=== PATIENT | male | born 1990 ===

== ENCOUNTER 2020-06-25 08:59 | Emergency (ER) | payer OTHER, SELFPAY ==
[2020-06-25 09:09] VITALS: BP 139/63; PULSE 67; RESP 16; TEMP 36.5; O2SAT 98; BMI 37.0
--- NOTE | 2020-06-25 09:21 | XR_ITS ---
EXAMINATION: XR LUMBOSACRAL SPINE CLINICAL INFORMATION: Left-sided pain COMPARISON: None TECHNIQUE: Three views of the lumbosacral spine. FINDINGS: There is straightening of lumbar lordosis. Abnormal segmentation of the lumbosacral spine seen with rudimentary disc at the S1-S2 disc level minimal loss of L5-S1 discitis seen with mild posterior spondylosis. Rest the disc heights, vertebral heights and alignment is normal. No acute fracture, dislocation or lytic process seen. The SI joints are symmetrical. XR/XR lumbar spine 2-3V IMPRESSION: Mild loss of L5-S1 disc height is noted with posterior spondylosis. No visible acute fracture, dislocation or subluxation.
[2020-06-25] MEDS: Cyclobenzaprine HCl 10 MG TABLET PO (09:32)
[2020-06-25] MEDS: Ketorolac Tromethamine 60 MG/2 ML VIAL IM (09:33)
--- NOTE | 2020-06-25 10:07 | ED_ITS ---
HPI - Back Pain/Injury General Chief Complaint: Back Pain/Injury Stated Complaint: back pain Time Seen by Provider: 06/25/20 09:21 Source: patient Mode of arrival: ambulatory Limitations: no limitations History of Present Illness HPI Narrative: State was sitting down on the ground with a friend turned to get up and felt a pulling sensation in the lower back and has had back pain since. States back pain essentially resolved when he is in certain positions and at rest but worsens with him moving and twisting or turning. There is no GI symptoms. MD elicited complaint: back pain Pertinent past history: prior back pain Onset (ago): day(s) (2 days ) Timing: intermittent Severity: moderate Similar Symptoms Previously: Yes Quality: aching Location: lumbar spine Radiation: none Exacerbating factors: none Relieving factors: none Context: turning/twisting Associated symptoms: denies other symptoms Work related injury: No Related Data Previous Rx's Medication Instructions Recorded metformin 1,000 mg tablet 1,000 mg PO BID 30 Days #60 tab 06/06/20 lisinopril 20 mg tablet 20 mg PO DAILY 90 Days #90 tab 06/15/20 cyclobenzaprine 10 mg PO TID PRN #20 tab 06/25/20 ibuprofen 800 mg PO Q8H PRN #30 tab 06/25/20 Allergies Allergy/AdvReac Type Severity Reaction Status Date / Time penicillin V Allergy Unknown hives Unverified 11/08/19 00:00 Penicillins [PENICILLINS] Allergy Unknown ITCHY Unverified 05/15/20 17:46 Review of Systems Review of Systems: Constitutional: No Weight loss, No Fever, No Chills, No Night Sweats, No Fatigue, No Malaise ENT/Mouth: No Hearing loss, No Ear Pain, No Nasal Congestion, No Sinus Pain, No Hoarseness, No sore throat, No Rhinorrhea, No Swallowing Difficulty Eyes: No Eye Pain, No Swelling, No Redness, No Foreign Body, No Discharge, No Vision Changes Cardiovascular: No Chest Pain, No SOB, No Dyspnea on Exertion, No Orthopnea, No Edema, No Palpitations Respiratory: No Cough, No Sputum, No Wheezing, No Smoke Exposure, No Dyspnea Gastrointestinal: No Nausea, No Vomiting, No Diarrhea, No Constipation, No abdominal Pain, No Hematochezia, No Melena Genitourinary: no irregular bleeding, No Dysuria, No Urinary Frequency, No Hematuria, No Urinary Incontinence, No Urgency, No Flank Pain, No Urinary Flow Changes, No Hesitancy Musculoskeletal: No joint pain, No Myalgias, No Joint Swelling NOTED IN HPI Skin: No Skin Lesions, No rash Neuro: No Weakness, No Numbness, No Paresthesias, No Loss of Consciousness, No Dizziness, No Headache Psych: No Social Issues Heme/Lymph: No Bruising, No Bleeding,No Lymphadenopathy Endocrine: No Polyuria, No Polydipsia, No Temperature Intolerance Yes all other systems are reviewed and are negative [facility] Past Medical History Attestation statement: The following information was validated with the patient. Medical History (Updated 06/25/20 @ 10:09 by Alvino Hartley NP) Diabetes mellitus Essential hypertension Social History Social History Alcohol intake: never Smoking Status: Never smoker Use of substances other than those prescribed or required for medical reasons: Yes Substance Use Type: Marijuana Substance Use Frequency: Weekly Last Used Substance: Days (ago) Any prior treatment program specific to substance use: No Advance Directives: No Advance Directives Information Provided: No Physical Exam Vital Signs: Vital Signs: Vital Signs Temp Pulse Resp BP Pulse Ox 06/25/20 09:09 97.7 F 67 16 139/63 98 Body Mass Index 37.0 Reviewed Const: General: cooperative and healthy appearing; No acute distress or intoxicated appearing Nutritional Appearance: average body habitus Orientation/consciousness: patient oriented x3 HENMT: Head: Yes normal to inspection Ears: hearing grossly normal bilaterally Eyes: General: appearance normal, both eyes and all related structures Visual Martinez: normal visual martinez by confrontation Neck: Neck: Yes normal visual inspection and No tender Thyroid: Thyroid normal Chest: Chest palpation & inspection: normal inspection of the chest Resp: Effort & Inspection: normal respiratory effort Cardio: Jugular venous distension: no JVD GI: Inspection: Yes normal to inspection Percussion: Yes normal to percussion Auscultation: normal bowel sounds : General: Yes no CVA tenderness Back/Spine/Pelvis: Other: Negative leg lift No midline to palpation. Back: no CVA tenderness Skin: General skin exam: no rashes or lesions noted Neuro: General: patient oriented x3 Extrem: General: Yes normal to inspection MDM - Back Pain/Injury MDM Narrative Medical decision making narrative: Strain type injury to the lumbar paraspinal muscle. No low back pain red flags. Feels better after Toradol/Flexeril out of bed ambulatory status with gait. No sinus symptoms saddle anesthesia/cord compression. Will be discharged home accordingly with clear precaution return follow-up instructions. Stable for discharge. Differential Diagnosis Differential diagnosis: Likely lumbar radiculopathy, sciatica and strain of lumbar region; Unlikely renal colic, pyelonephritis, thoracic back pain, AAA and discitis Imaging Data Lumbar spine x-ray: Radiologist's impression: [address] [address] XRay Report Signed Patient: Cirilo Avendaño [facility]#: [id number] : 1990Acct:[id number] Age/Sex: 29 / MADM Date: 06/25/20 Loc: HO.ED Attending Dr: Ordering Physician: Alvino Hartley NP Date of Service: 06/25/20 Procedure(s): XR lumbar spine 2-3V Accession Number(s): [id number] cc: Alvino Hartley FOOD SERVICE WORKER~ EXAMINATION: XR LUMBOSACRAL SPINE CLINICAL INFORMATION: Left-sided pain COMPARISON: None TECHNIQUE: Three views of the lumbosacral spine. FINDINGS: There is straightening of lumbar lordosis. Abnormal segmentation of the lumbosacral spine seen with rudimentary disc at the S1-S2 disc level minimal loss of L5-S1 discitis seen with mild posterior spondylosis. Rest the disc heights, vertebral heights and alignment is normal. No acute fracture, dislocation or lytic process seen. The SI joints are symmetrical. XR/XR lumbar spine 2-3V IMPRESSION: Mild loss of L5-S1 disc height is noted with posterior spondylosis. No visible acute fracture, dislocation or subluxation. Dictated By:MONAE TAY MD Signed By:<Electronically signed by MONAE TAY MD in OV>06/25/20949 DD/ 0 TD/TT: Overhead Crane Inspector: KARYN Discharge Plan Discharge Clinical Impression: Strain of lumbar region Patient Disposition: Home, Self-Care Instructions: Low Back Strain (ED), Lower Back Exercises (ED) Additional Instructions: You have strained the muscle in her lower back The x-ray did not show any acute (new) findings. Warm compresses Gentle stretching Take medication prescribed Return if any concerns or worsening symptoms otherwise follow up with her primary care doctor Thank you Prescriptions: New cyclobenzaprine 10 mg tablet 10 mg PO TID PRN (Reason: muscle spasm) Qty: 20 RF: 0 ibuprofen 800 mg tablet 800 mg PO Q8H PRN (Reason: pain) Qty: 30 RF: 0 No Action metformin 1,000 mg tablet 1,000 mg PO BID 30 Days Qty: 60 RF: 6 lisinopril 20 mg tablet 20 mg PO DAILY 90 Days Qty: 90 RF: 3 Referrals: Latanya Lopez MD [Primary Care Provider] - 1 week
== END 2020-06-25 10:32 | disposition home or self-care (01) ==
PROVIDERS: Emergency Provider Emergency Medicine; PCP Internal Medicine
DX: S39.012A Strain of muscle, fascia and tendon of lower back, initial encounter (principal); X50.1XXA Overexertion from prolonged static or awkward postures, initial encounter; Y93.9 Activity, unspecified; Y92.9 Unspecified place or not applicable; Y99.9 Unspecified external cause status; Z79.899 Other long term (current) drug therapy
CPT/HCPCS: 72100; 96372; 99283; 99284; J1885

== ENCOUNTER 2021-11-24 08:56 | Outpatient (REF) | payer OTHER, SELFPAY ==
[2021-11-24 11:06] LABS: Creatinine Urine 196.13 mg/dL; Microalbum/Creatinine Ratio Ur 4.5 ug/mg cr
[2021-11-24 14:03] LABS: Alanine Aminotransferase 44 U/L (0-40); Albumin Level 4.9 g/dL (3.5-5.0); Alkaline Phosphatase 62 U/L (39-117); Anion Gap 12 (12-20); Aspartate Amino Transferase 32 U/L (5-37); Bilirubin Total 0.7 mg/dL (0.0-1.0); Blood Urea Nitrogen 15 mg/dL (9-16); Carbon Dioxide 29 mmol/L (22-29); Chloride 102 mmol/L (96-108); Cholesterol 127 mg/dL; Estimated Glomerular Filt Rate > 60; Glucose Fasting 129 mg/dL (60-99); HDL Cholesterol 30 mg/dL; LDL Cholesterol Calculated 76 mg/dl; Potassium 4.7 mmol/L (3.3-5.1); Sodium 138 mmol/L (135-145); Triglycerides 108 mg/dL
[2021-11-24 14:23] LABS: Vitamin D 25-OH Total 24.9 ng/mL (>30)
== END 2021-11-24 08:57 | disposition home or self-care (01) ==
LOC: HO.LAB 08:56
PROVIDERS: PCP Internal Medicine; Visit Provider Internal Medicine
DX: E11.9 Type 2 diabetes mellitus without complications (principal); E78.5 Hyperlipidemia, unspecified; E55.9 Vitamin D deficiency, unspecified; R10.11 Right upper quadrant pain
CPT/HCPCS: 36415; 80053; 80061; 82043; 82306

== ENCOUNTER → 2022-06-29 11:19 | Outpatient (BNVA) | payer OTHER, SELFPAY | PROVIDERS: PCP Internal Medicine; Referring Provider Internal Medicine; Visit Provider Nurse Practitioner Family | DX: R10.11 Right upper quadrant pain (principal); K59.01 Slow transit constipation | CPT/HCPCS: 99202 ==

== ENCOUNTER 2022-07-10 10:23 | Outpatient (REF) | payer OTHER, SELFPAY ==
[2022-07-10 11:33] LABS: Alanine Aminotransferase 39 U/L (0-40); Albumin Level 4.2 g/dL (3.5-5.0); Alkaline Phosphatase 58 U/L (39-117); Aspartate Amino Transferase 27 U/L (5-37); Bilirubin Direct 0.2 mg/dL (0.0-0.5); Bilirubin Total 0.4 mg/dL (0.0-1.0); Lipase 20 U/L (8-78); Total Protein 6.9 g/dL (6.5-8.0)
[2022-07-10 11:54] LABS: TSH reflex Free T4 0.43 uIU/mL (0.32-4.0)
== END 2022-07-10 10:24 | disposition home or self-care (01) ==
LOC: HO.LAB 10:23
PROVIDERS: PCP Internal Medicine; Visit Provider Nurse Practitioner Family
DX: R10.9 Unspecified abdominal pain (principal); K59.00 Constipation, unspecified
CPT/HCPCS: 36415; 80076; 83690; 84443

== ENCOUNTER 2022-08-04 08:10 | Outpatient (REF) | payer OTHER, SELFPAY ==
--- NOTE | ~2022-08-04 | US_ITS ---
EXAMINATION: US ABDOMEN COMPLETE CLINICAL INFORMATION: Unspecified abdominal pain. COMPARISON: Limited abdominal ultrasound 03/20/2020. Ultrasound abdomen 01/11/2019. TECHNIQUE: Real-time imaging of the abdominal viscera. FINDINGS: PANCREAS: Normal. ABDOMINAL AORTA: The proximal, mid, and distal segments are normal in caliber. INFERIOR VENA CAVA: Visualized portions are normal. LIVER: The liver is enlarged measuring 18.6 cm in length. The liver contour is normal. There is increased liver echogenicity with areas of focal fatty sparing adjacent to the gallbladder. No focal hepatic lesion. There is no intrahepatic biliary duct dilatation seen. GALLBLADDER: Normal. The gallbladder is physiologically distended without evidence of stones, sludge, polyps, wall thickening or pericholecystic fluid. COMMON BILE DUCT: Normal in caliber measuring 0.4 cm in diameter. RIGHT KIDNEY: Normal. No hydronephrosis. No renal calculi or focal parenchymal lesions. The kidney measures 9.7 cm in maximum dimension. LEFT KIDNEY: Normal. No hydronephrosis. No renal calculi or focal parenchymal lesions. The kidney measures 12.6 cm in maximum dimension. SPLEEN: Normal. The spleen measures 11.6 cm in maximum dimension. FREE FLUID: None. US/US abdomen complete IMPRESSION: 1. Diffuse hepatic steatosis with areas of focal fatty sparing adjacent to gallbladder. 2. The rest of the abdominal ultrasound is unremarkable.
== END 2022-08-04 08:11 | disposition home or self-care (01) ==
LOC: HO.US 08:10
PROVIDERS: Visit Provider Internal Medicine
DX: R10.9 Unspecified abdominal pain (principal)
CPT/HCPCS: 76700

== ENCOUNTER → 2022-10-01 15:05 | Outpatient (BNVA) | payer OTHER, SELFPAY | PROVIDERS: PCP Internal Medicine; Visit Provider Nurse Practitioner Family | DX: R10.11 Right upper quadrant pain (principal); K59.00 Constipation, unspecified | CPT/HCPCS: 99212 ==

== ENCOUNTER → 2022-11-01 08:48 | Outpatient (REF) | payer OTHER, SELFPAY ==
--- NOTE | ~2022-11-01 | NM_ITS ---
PROCEDURE: NUCLEAR MEDICINE HEPATOBILIARY SCAN WITHOUT PHARMACEUTICAL CLINICAL INFORMATION: Right upper quadrant pain. COMPARISON: None TECHNIQUE: Following intravenous administration of 5 mCi of 99M technetium mebrofenin, imaging over the right upper quadrant was obtained up to 120 minutes. FINDINGS: There is normal hepatic uptake with no focal defect. There is prompt visualization of common bile duct by 17-18 minutes. Cystic duct is not visualized up to 2 hours. No CCK was administered due to delayed visualization of gallbladder and most of isotope within the small bowel. NM/NM hepatobiliary wo pharm IMPRESSION: Normal hepatic uptake. Patent CBD. Delayed but patent cystic duct.
== END ==
LOC: HO.NUCMED 08:48
PROVIDERS: Visit Provider Nurse Practitioner Family
DX: R10.11 Right upper quadrant pain (principal)
CPT/HCPCS: 78226; A9537

== ENCOUNTER → 2022-11-12 15:05 | Outpatient (BNVA) | payer OTHER, SELFPAY | PROVIDERS: PCP Internal Medicine; Referring Provider Internal Medicine; Visit Provider Nurse Practitioner Family | DX: K59.04 Chronic idiopathic constipation (principal); R10.11 Right upper quadrant pain | CPT/HCPCS: 99212 ==

== ENCOUNTER 2022-12-20 13:53 | Outpatient (AMB) | payer OTHER, SELFPAY ==
--- NOTE | 2022-12-20 14:02 | A.OFFPC_ITS ---
Vital Signs 12/20/22 14:07 Height 5 ft 11 in Weight 260 lb BMI 36.2 BP 130/70 Blood Pressure Location Lt brachial Position Sitting Intake Visit Reasons: DM Intake Note: Patient here for a follow up DM Commutator Operator Required: No Accompanied by: Self / Same As Patient Allergies Penicillins [PENICILLINS] Allergy (Intermediate, Verified 12/20/22 14:15) Hives Medication List - Last Reconciled 12/20/22 by Latanya Gonzales MD blood pressure test kit-large ([facility]ocate Blood Pressure Monitor kit) As directed blood sugar diagnostic (FreeStyle Test strips) Use 1 test strip once a day blood-glucose meter (FreeStyle [place] Lite kit) As directed cyclobenzaprine 10 mg PO TID PRN docusate sodium 100 mg PO BEDTIME PRN 90 days ergocalciferol (vitamin D2) (Vitamin D2) 1,250 mcg PO QWEEK 90 days fenofibrate 54 mg PO DAILY 90 days ibuprofen 800 mg PO Q8H PRN lancets (FreeStyle Lancets) Use 1 lancet once a day as needed linaclotide (Linzess) 145 mcg PO DAILY lisinopril 20 mg PO DAILY 90 days loratadine 10 mg PO DAILY metformin 1,000 mg PO BID 30 days polyethylene glycol 3350 (Miralax) 17 grams PO DAILY semaglutide (Ozempic) 0.25 mg (0.4 mL) subcut QWEEK 90 days sennosides (Natural Senna Laxative) 8.6 mg PO BEDTIME Tobacco use date assessed: 12/20/22 HPI HPI Comments History of Present Illness Details This is a 32-year-old male with diabetes mellitus type 2, hypertension, hypertriglyceridemia and chronic idiopathic constipation that comes today for follow-up on his conditions. A1c slightly elevated and I will increase Ozempic. Blood pressure stable. Lipid panel will be order. Constipation well controlled with medications. No chest pain or shortness of breath. [facility] Medical History (Updated 12/20/22 @ 15:03 by Latanya Gonzales MD) Abdominal pain, RUQ (right upper quadrant) Allergic rhinitis Diabetes mellitus Essential hypertension Hemorrhoids Hypertriglyceridemia Hypovitaminosis D Lumbar spondylosis Neuropathy Obese Surgical History No pertinent past surgical history Family History Father Diabetes Hypertension Mother Diabetes Hypertension Stroke Maternal Grandmother Cancer Family/Other FH: mental illness Substance use disorder Maternal Aunt Diabetes Hypertension Paternal Aunt Diabetes Hypertension Social History Housing: Apartment Alcohol intake: former Patient Tobacco Use Status: Former Tobacco user Tobacco use type: Cigarette e-Cigarette/Vaping Use: Never Used Second Hand Smoke Exposure: No Substance Use Type: Marijuana service: No Current occupational status: employed Current occupational exposures/hazards: No Cognitive needs: No Hearing needs: No Vision needs: Yes Questionnaire PHQ-9 Over the last 2 weeks, how often have you been bothered by any of the following problems? 1. Little interest or pleasure in doing things: not at all 2. Feeling down, depressed, or hopeless: not at all 3. Trouble falling or staying asleep, or sleeping too much: not at all 4. Feeling tired or having little energy: not at all 5. Poor appetite or overeating: not at all 6. Feeling bad about yourself - or that you are a failure or have let yourself or your family down: not at all 7. Trouble concentrating on things, such as reading the newspaper or watching television: not at all 8. Moving or speaking so slowly that other people could have noticed. Or the opposite - being so fidgety or restless that you have been moving around a lot more than usual: not at all 9. Thoughts that you would be better off or of hurting yourself in some way: not at all Total score: 0 Depression Screening Interpretation: Negative 01053 - PHQ-9 Billing: Yes Source: Developed by Drs. Julio Williamson, Erendira Fermin, Ganga Crow and colleagues, with an educational lv from [employer]. Thrive Questionnaire Declines Thrive assessment: No Date Thrive assessed: 12/20/22 I am a: Patient What is your living situation today?: I have a steady place to live Within the past 12 months, did the food you bought not last and you didn't have the money to get more?: Never true Within the past 12 months, did you worry whether your food would run out before you got money to buy more?: Never true Do you have trouble paying for medicines?: No Do you have trouble getting transportation to medical appointments?: No Do you have trouble paying your heating and electricity bill?: No Do you have trouble taking care of your child, family member or friend?: No Do you have trouble with day-to-day activities such as bathing, preparing meals, shopping, managing finances, etc.?: No Are you currently unemployed and looking for a job?: No Are you interested in more education?: No Currently or been in a relationship where the following occur: no concerns reported AUDIT C Alcohol Use Questionnaire (AUDIT-C) 1. How often do you have a drink containing alcohol?: Monthly or less 2. How many drinks containing alcohol do you have on a typical day when you are drinking?: 1 or 2 3. How often do you have six or more drinks on one occasion?: Never Total Score: 1 ANAI-7 AMB Questionnaire ANAI-7 Date ANAI - 7 assessed: 12/20/22 Feeling nervous, anxious, or on edge: 0 = Not at all Not being able to stop or control worryin = Not at all Worrying too much about different things: 0 = Not at all Trouble relaxin = Not at all Being so restless that it is hard to sit still: 0 = Not at all Becoming easily annoyed or irritable: 0 = Not at all Feeling afraid as if something awful might happen: 0 = Not at all Total ANAI-7 score (0-4 normal; 5-9 mild; 10-14 moderate; 15-21 severe): 0 Source: Developed by Drs. Julio Williamson, Erendira Fermin, Ganga Crow and colleagues, with an educational lv from [employer]. ANAI-7 Assessment Billing ANAI-7 Assessment Tool: ANAI-7 Assessment 69604 Review of Systems Const All systems reviewed & are unremarkable except as noted in HPI and below Eyes Reports no additional complaints, Denies change in vision and Denies other visual disturbances Card Denies chest pain at rest, Denies chest pain with activity, Denies edema, Denies irregular heart rhythm, Denies claudication, Denies dyspnea, Denies dyspnea on exertion, Denies orthopnea, Denies paroxysmal nocturnal dyspnea and Denies slow heart rate Resp Denies cough, Denies dyspnea and Denies dyspnea on exertion GI Denies abdominal pain, Denies change in bowel habits, Denies excessive flatus, Denies nausea and Denies vomiting Denies urinary hesitancy, Denies urinary incontinence and Denies urinary urgency Musc Denies abnormal gait, Denies atrophy, Denies deformity and Denies limited range of motion Skin/Breast Denies bleeding lesions, Denies changing lesions and Denies rash Neuro Denies abnormal gait and Denies lack of coordination Physical exam (Primary Care) Vital Signs: Last Vital Signs BP 130/70 12/20/22 14:07 BMI result Body Mass Index 36.2 Tobacco/Smoking Status: Tobacco use Status Tobacco use date assessed 12/20/22 12/20/22 14:12 Patient Tobacco Use Status Former Tobacco user 12/20/22 14:04 Tobacco use type Cigarette 12/20/22 14:04 e-Cigarette/Vaping Use Never Used 12/20/22 14:04 PHQ-9: PHQ-9 Score PHQ-9: Total score 0 12/20/22 14:49 Depression Screening Interpretation: Negative Thrive Assessment: Date of Thrive Assessment Date Thrive assessed 12/20/22 12/20/22 14:12 Currently or been in a relationship where the following occur: no concerns reported Const Orientation/consciousness: patient oriented x3 Eyes General: appearance normal, both eyes and all related structures Eyelids: Yes eyelids normal Conjunctivae: conjunctivae normal Neck Neck: Yes normal visual inspection and Yes supple Resp Effort & Inspection: normal respiratory effort Auscultation: clear to auscultation bilaterally Cardio Jugular venous distension: no JVD Rate: regular rate Rhythm: regular rhythm Heart sounds: S1 normal heart sound present and S2 normal heart sound present Neuro General: patient oriented x3 and no focal motor deficits Extrem General: Yes full ROM Assessment and Plan Assessment & Plan (1) Diabetes mellitus: Code(s): E11.9 - Type 2 diabetes mellitus without complications Qualifiers: Diabetes mellitus type: type 2 Diabetes mellitus terminal operations supervisor insulin use: without terminal operations supervisor use Diabetes mellitus complication status: without complication Qualified Code(s): E11.9 - Type 2 diabetes mellitus without complications Plan: Continue metformin. Increase ozempick. A1c goal is equal or less than 7%. (2) Essential hypertension: Code(s): I10 - Essential (primary) hypertension Plan: Continue lisinopril. Blood pressure goal is equal or less than 130/80 (3) Hypertriglyceridemia: Code(s): E78.1 - Pure hyperglyceridemia Plan: Continue fibrates. Repeat lipid panel per (4) Chronic idiopathic constipation: Code(s): K59.04 - Chronic idiopathic constipation Plan: Continue on MiraLax as needed Orders: Orders Comprehensive Bowler. Panel Fast Today E11.9 - Type 2 diabetes mellitus without complications Lipid Panel Today E78.5 - Hyperlipidemia, unspecified Vitamin D 25-OH Total Today E55.9 - Vitamin D deficiency, unspecified Microalbumin, Random (w Creat) Today E11.9 - Type 2 diabetes mellitus without complications AMB Hemoglobin A1c Today E11.9 - Type 2 diabetes mellitus without complications Referrals Ophthalmology Referral E11.9 - Type 2 diabetes mellitus without complications Medications: New semaglutide (Ozempic) 1 mg (0.75 mL) subcut QWEEK 3.75 mL 6RF 30 days E11.9 - Type 2 diabetes mellitus without complications Discontinued semaglutide (Ozempic) for 4 weeks Discontinued Reason: Duplicate 0.25 mg (0.4 mL) subcut QWEEK 90 days 5.2 mL 1RF E11.9 - Type 2 diabetes mellitus without complications Coding Level of Care Code Est Pt Level 4 (65913) Diagnoses Diabetes mellitus E11.9 Diabetes mellitus type: type 2 Diabetes mellitus [facility] insulin use: without [facility] use Diabetes mellitus complication status: without complication Essential hypertension I10 Hypertriglyceridemia E78.1 Chronic idiopathic constipation K59.04 Additional Codes ANAI-7 Assessment Billing - ANAI-7 Assessment Tool: ANAI-7 Assessment 07453 ([id number]) Time Spent (min) 23
[2022-12-20 14:07] VITALS: BP 130/70; BMI 36.2
== END 2022-12-20 14:24 | disposition home or self-care (01) ==
LOC: HO.HMGH 13:53
PROVIDERS: PCP Internal Medicine; Visit Provider Internal Medicine
DX: E11.9 Type 2 diabetes mellitus without complications (principal)
CPT/HCPCS: 83036; 99214

== ENCOUNTER 2023-04-11 12:48 | Outpatient (AMB) | payer OTHER, SELFPAY ==
--- NOTE | 2023-04-11 13:20 | A.OFFPC_ITS ---
Vital Signs 04/11/23 13:22 Height 5 ft 11 in Weight 242 lb 6 oz BMI 33.8 BP 128/72 Blood Pressure Location Lt brachial Position Sitting Pulse 86 Pulse Source Pulse Oximeter Pulse Oximetry (%) 96 Oxygen Delivery Method Room Air Intake Visit Reasons: Severe back pain Allergies Penicillins [PENICILLINS] Allergy (Intermediate, Verified 04/11/23 13:29) Hives Medication List - Last Reconciled 04/11/23 by Rosendo Ramos PA-C blood pressure test kit-large ([facility] Blood Pressure Monitor kit) As directed blood sugar diagnostic (FreeStyle Test strips) Use 1 test strip once a day blood-glucose meter ([employer] [place] Lite kit) As directed cyclobenzaprine 10 mg PO TID PRN docusate sodium 100 mg PO BEDTIME PRN 90 days ergocalciferol (vitamin D2) (Vitamin D2) 1,250 mcg PO QWEEK 90 days fenofibrate 54 mg PO DAILY 90 days ibuprofen 800 mg PO Q8H PRN lancets (FreeStyle Lancets) Use 1 lancet once a day as needed linaclotide (Linzess) 145 mcg PO DAILY lisinopril 20 mg PO DAILY 90 days loratadine 10 mg PO DAILY metformin 1,000 mg PO BID 30 days polyethylene glycol 3350 (Miralax) 17 grams PO DAILY semaglutide (Ozempic) 1 mg (0.75 mL) subcut QWEEK 30 days sennosides (Natural Senna Laxative) 8.6 mg PO BEDTIME Tobacco use date assessed: 12/20/22 HPI Severe back pain HPI Details Patient is a 32-year-old male here today for a problem visit. This the 1st time I am meeting this 32-year-old male with a past medical history significant type 2 diabetes, hypertension and obesity. He presents today with 2 week history of lower back pain after lifting an 80 lb item and immediately feeling pain in his lower left aspect of lumbar spine. Otherwise denies any radiculopathy down the lower extremities. Denies any bowel or bladder dysfunction. Patient has a chronic history of lower back pain and got x-rays of his lumbar spine in 2019 showing-->Mild loss of L5-S1 disc height is noted with posterior spondylosis. [facility] Medical History (Updated 04/11/23 @ 13:35 by Rosendo Ramos PA-C) Abdominal pain, RUQ (right upper quadrant) Allergic rhinitis Diabetes mellitus Essential hypertension Hemorrhoids Hypertriglyceridemia Hypovitaminosis D Neuropathy Obese Surgical History No pertinent past surgical history Family History Father Diabetes Hypertension Mother Diabetes Hypertension Stroke Maternal Grandmother Cancer Family/Other FH: mental illness Substance use disorder Maternal Aunt Diabetes Hypertension Paternal Aunt Diabetes Hypertension Social History Housing: Apartment Alcohol intake: former Patient Tobacco Use Status: Former Tobacco user Tobacco use type: Cigarette e-Cigarette/Vaping Use: Never Used Second Hand Smoke Exposure: No Substance Use Type: Marijuana service: No Current occupational status: employed Current occupational exposures/hazards: No Cognitive needs: No Hearing needs: No Vision needs: Yes Questionnaire PHQ-9 Over the last 2 weeks, how often have you been bothered by any of the following problems? 1. Little interest or pleasure in doing things: not at all 2. Feeling down, depressed, or hopeless: not at all 3. Trouble falling or staying asleep, or sleeping too much: not at all 4. Feeling tired or having little energy: not at all 5. Poor appetite or overeating: not at all 6. Feeling bad about yourself - or that you are a failure or have let yourself or your family down: not at all 7. Trouble concentrating on things, such as reading the newspaper or watching television: not at all 8. Moving or speaking so slowly that other people could have noticed. Or the opposite - being so fidgety or restless that you have been moving around a lot more than usual: not at all 9. Thoughts that you would be better off or of hurting yourself in some way: not at all Total score: 0 Depression Screening Interpretation: Negative 30729 - PHQ-9 Billing: Yes Source: Developed by Drs. Julio Williamson, Erendira Fermin, Ganga Crow and colleagues, with an educational lv from [employer]. Thrive Questionnaire Date Thrive assessed: 12/20/22 I am a: Patient What is your living situation today?: I have a steady place to live Within the past 12 months, did the food you bought not last and you didn't have the money to get more?: Never true Within the past 12 months, did you worry whether your food would run out before you got money to buy more?: Never true Currently or been in a relationship where the following occur: no concerns reported AUDIT C Alcohol Use Questionnaire (AUDIT-C) 1. How often do you have a drink containing alcohol?: Monthly or less 2. How many drinks containing alcohol do you have on a typical day when you are drinking?: 1 or 2 3. How often do you have six or more drinks on one occasion?: Never Total Score: 1 ANAI-7 AMB Questionnaire ANAI-7 Date ANAI - 7 assessed: 12/20/22 Feeling nervous, anxious, or on edge: 0 = Not at all Not being able to stop or control worryin = Not at all Worrying too much about different things: 0 = Not at all Trouble relaxin = Not at all Being so restless that it is hard to sit still: 0 = Not at all Becoming easily annoyed or irritable: 0 = Not at all Feeling afraid as if something awful might happen: 0 = Not at all Total ANAI-7 score (0-4 normal; 5-9 mild; 10-14 moderate; 15-21 severe): 0 Source: Developed by Drs. Julio Williamson, Erendira Fermin, Ganga Crow and colleagues, with an educational lv from [employer]. ANAI-7 Assessment Billing ANAI-7 Assessment Tool: ANAI-7 Assessment 35134 Review of Systems Const Denies headache(s) Eyes Denies loss of vision ENT Denies vertigo, Denies dizziness, Denies headache(s) and Denies sore throat Card Denies chest pain, Denies leg edema and Denies lightheadedness Resp Denies cough, Denies hemoptysis and Denies wheezing GI Denies abdominal pain, Denies melena, Denies constipation, Denies diarrhea and Denies vomiting Denies dysuria, Denies urinary frequency and Denies urinary urgency Musc Reports back pain, Denies arthralgias, Denies joint swelling, Denies numbness and Denies tingling Neuro Denies Abnormal speech present, Denies behavioral changes, Denies vertigo, Denies dizziness, Denies headache(s), Denies loss of vision, Denies memory loss, Denies numbness and Denies tingling Psych Denies anxiety, Denies behavioral changes, Denies depression, Denies memory loss and Denies panic attacks Sean/Lymph Denies easy bleeding and Denies easy bruising Aller/Immun Denies wheezing Physical exam (Primary Care) Vital Signs: Last Vital Signs Pulse 86 04/11/23 13:22 BP 128/72 04/11/23 13:22 Pulse Ox 96 04/11/23 13:22 Oxygen Delivery Method Room Air 04/11/23 13:22 BMI result Body Mass Index 33.8 Tobacco/Smoking Status: Tobacco use Status Tobacco use date assessed 12/20/22 04/11/23 13:21 Patient Tobacco Use Status Former Tobacco user 04/11/23 13:21 Tobacco use type Cigarette 04/11/23 13:21 e-Cigarette/Vaping Use Never Used 04/11/23 13:21 PHQ-9: PHQ-9 Score PHQ-9: Total score 0 04/11/23 13:27 Depression Screening Interpretation: Negative Thrive Assessment: Date of Thrive Assessment Date Thrive assessed 12/20/22 04/11/23 13:21 Currently or been in a relationship where the following occur: no concerns reported Const General: healthy appearing, no acute distress, alert and awake Nutritional Appearance: well nourished Orientation/consciousness: oriented to person, oriented to place and oriented to time HENMT Ears: TM's normal bilaterally General nose exam: Normal nasal mucous membranes and turbinates present Eyes Conjunctivae: conjunctivae normal Sclerae: sclerae normal Pupils: Equal, round and reactive pupils present Neck Neck: Yes no lymphadenopathy and Yes no JVD Thyroid: Thyroid normal Carotids: no bruits Resp Effort & Inspection: normal respiratory effort and not tachypneic Auscultation: no crackles, no rales, no rhonchi and no wheezes Cardio Rate: regular rate Rhythm: regular rhythm Heart sounds: no murmurs and normal S1 and S2 GI Palpation (GI): Soft to palpation, nontender, no hepatomegaly and no splenomegaly Auscultation: normal bowel sounds Skin General skin exam: no rashes or lesions noted and dry skin Neuro General: oriented to person, oriented to place and oriented to time Cranial nerves: Yes Equal, round and reactive pupils present Speech: No Abnormal speech present Gait exam (Neuro): Normal gait present Motor exam (neuro): no tremor noted Extrem Right upper extremity: full ROM Left upper extremity: full ROM Right lower extremity: full ROM; no edema Left lower extremity: full ROM; no edema Psych Mental Status: mental status grossly normal Speech and movement: Normal speech and movement present Affect: normal affect Attitude: cooperative Thought process: Normal thought process present Results AMB Hemoglobin A1c AMB Hemoglobin A1c 6.0 % Last Edit by Linda Link MA on 04/11/23 13:30 Assessment and Plan Assessment & Plan (1) Lumbosacral ligament sprain: Code(s): S33.9XXA - Sprain of unspecified parts of lumbar spine and pelvis, initial encounter Qualifiers: Encounter type: initial encounter Qualified Code(s): S33.9XXA - Sprain of unspecified parts of lumbar spine and pelvis, initial encounter Plan: Patient's signs and symptoms most consistent with a lumbosacral sprain. Will supply with cyclobenzaprine ibuprofen to use temporarily. Will give paper Rx for back brace to use to help support his back when lifting. Offered physical therapy though patient declines at this time. Orders: Orders AMB Hemoglobin A1c Today E11.9 - Type 2 diabetes mellitus without complications Medications: New back brace As directed 1 ea 0RF M47.816 - Spondylosis without myelopathy or radiculopathy, lumbar region, S33.9XXA - Sprain of unspecified parts of lumbar spine and pelvis, initial encounter Refilled cyclobenzaprine 10 mg PO TID PRN 20 tabs 0RF muscle spasm S33.9XXA - Sprain of unspecified parts of lumbar spine and pelvis, initial encounter ibuprofen 800 mg PO Q8H PRN 30 tabs 0RF pain S33.9XXA - Sprain of unspecified parts of lumbar spine and pelvis, initial encounter Coding Level of Care Code Est Pt Level 3 (37480) Diagnoses Lumbosacral ligament sprain S33.9XXA Encounter type: initial encounter Additional Codes ANAI-7 Assessment Billing - ANAI-7 Assessment Tool: ANAI-7 Assessment 04306 ([id number])
[2023-04-11 13:22] VITALS: BP 128/72; PULSE 86; O2SAT 96; BMI 33.8
== END 2023-04-11 13:45 | disposition home or self-care (01) ==
PROVIDERS: PCP Internal Medicine; Visit Provider Physician Assistant
DX: S33.9XXA Sprain of unspecified parts of lumbar spine and pelvis, initial encounter (principal); E11.9 Type 2 diabetes mellitus without complications
CPT/HCPCS: 83036; 99213

== ENCOUNTER 2023-09-05 14:18 | Outpatient (REF) | payer OTHER, SELFPAY ==
[2023-09-09 09:54] LABS: H Pylori Breath Test Positive (Negative)
== END 2023-09-05 14:19 | disposition home or self-care (01) ==
LOC: HO.LNP 14:18
PROVIDERS: Visit Provider Nurse Practitioner Family
DX: R10.9 Unspecified abdominal pain (principal)
CPT/HCPCS: 83013

== ENCOUNTER → 2023-09-05 15:45 | Outpatient (BNVA) | payer OTHER, SELFPAY | PROVIDERS: PCP Internal Medicine; Visit Provider Nurse Practitioner Family | DX: K59.04 Chronic idiopathic constipation (principal); K21.9 Gastro-esophageal reflux disease without esophagitis; R10.11 Right upper quadrant pain; R10.13 Epigastric pain | CPT/HCPCS: 99212 ==

== ENCOUNTER 2023-09-06 12:43 | Outpatient (AMB) | payer OTHER, SELFPAY ==
--- NOTE | 2023-09-06 12:46 | A.OFFPC_ITS ---
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 Accompanied by: Self / Same As Patient Allergies Penicillins [PENICILLINS] Allergy (Intermediate, Verified 09/06/23 12:57) Hives Medication List - Last Reconciled 09/06/23 by Latanya Gonzaels MD back brace As directed blood pressure test kit-large ([facility] Blood Pressure Monitor kit) As directed blood sugar diagnostic (FreeStyle Test strips) Use 1 test strip once a day blood-glucose meter (FreeStyle [place] Lite kit) As directed docusate sodium 100 mg PO BEDTIME PRN 90 days ergocalciferol (vitamin D2) (Vitamin D2) 1,250 mcg PO QWEEK 90 days famotidine (Pepcid) 20 mg PO BEDTIME fenofibrate 54 mg PO DAILY 90 days lancets (FreeStyle Lancets) Use 1 lancet once a day as needed linaclotide (Linzess) 145 mcg PO DAILY lisinopril 20 mg PO DAILY 90 days loratadine 10 mg PO DAILY metformin 1,000 mg PO BID 30 days pantoprazole 40 mg PO DAILY semaglutide (Ozempic) mg subcut sennosides (Natural Senna Laxative) 8.6 mg PO BEDTIME Tobacco use date assessed: 09/06/23 Dental Screening Dental Screen Date: 09/06/23 Did you have a dental visit in the last 12 months?: No Did you have a dental problem in the last 6 months where you did not have access to dental care?: No Was dental information given to patient?: Patient has dentist HPI HPI Comments History of Present Illness Details This is a 33-year-old male with diabetes mellitus type 2 that comes for his physical exam. A1c within goal. Last diabetic eye exam was 2022. He is obese with a BMI of 37 and declines weight loss surgery. Was advised to diet and exercise to reach BMI goal less than 30. No chest pain or shortness of breath. [facility] Medical History (Updated 09/06/23 @ 13:07 by Latanya Gonzales MD) Neuropathy Obese Hypovitaminosis D Allergic rhinitis Hemorrhoids Abdominal pain, RUQ (right upper quadrant) Hypertriglyceridemia Essential hypertension Diabetes mellitus Surgical History No pertinent past surgical history Family History Father Diabetes Hypertension Mother Diabetes Hypertension Stroke Maternal Grandmother Cancer Family/Other FH: mental illness Substance use disorder Maternal Aunt Diabetes Hypertension Paternal Aunt Diabetes Hypertension Social History Housing: Apartment Alcohol intake: former Patient Tobacco Use Status: Former Tobacco user Tobacco use type: Cigarette e-Cigarette/Vaping Use: Never Used Second Hand Smoke Exposure: No Substance Use Type: Marijuana service: No Current occupational status: employed Current occupational exposures/hazards: No Cognitive needs: No Hearing needs: No Vision needs: Yes Questionnaire Thrive Questionnaire Date Thrive assessed: 12/20/22 ANAI-7 AMB Questionnaire ANAI-7 Date ANAI - 7 assessed: 12/20/22 Source: Developed by Drs. Julio Williamson, Erendira Fermin, Ganga Crow and colleagues, with an educational lv from [employer]. Review of Systems Const All systems reviewed & are unremarkable except as noted in HPI and below Eyes Reports no additional complaints, Denies change in vision and Denies other visual disturbances Card Denies chest pain at rest, Denies chest pain with activity, Denies edema, Denies irregular heart rhythm, Denies claudication, Denies dyspnea, Denies dyspnea on exertion, Denies orthopnea, Denies paroxysmal nocturnal dyspnea and Denies slow heart rate Resp Denies cough, Denies dyspnea and Denies dyspnea on exertion GI Denies abdominal pain, Denies change in bowel habits, Denies excessive flatus, Denies nausea and Denies vomiting Denies urinary hesitancy, Denies urinary incontinence and Denies urinary urgency Musc Denies atrophy, Denies deformity and Denies limited range of motion Skin/Breast Denies bleeding lesions, Denies changing lesions and Denies rash Physical exam (Primary Care) Vital Signs: Last Vital Signs BP 118/60 09/06/23 12:47 BMI result Body Mass Index 37.0 Tobacco/Smoking Status: Tobacco use Status Tobacco use date assessed 09/06/23 09/06/23 12:49 Patient Tobacco Use Status Former Tobacco user 09/06/23 12:49 Tobacco use type Cigarette 09/06/23 12:49 e-Cigarette/Vaping Use Never Used 09/06/23 12:49 Thrive Assessment: Date of Thrive Assessment Date Thrive assessed 12/20/22 09/06/23 12:49 Const Orientation/consciousness: patient oriented x3 [facility] Head: Yes normal to inspection, Yes normocephalic and Yes atraumatic Ears: external ears normal Eyes General: appearance normal, both eyes and all related structures Eyelids: Yes eyelids normal Conjunctivae: conjunctivae normal Neck Neck: Yes normal visual inspection and Yes supple Resp Effort & Inspection: normal respiratory effort Auscultation: clear to auscultation bilaterally Cardio Jugular venous distension: no JVD Rate: regular rate Rhythm: regular rhythm Heart sounds: S1 normal heart sound present and S2 normal heart sound present GI Inspection: Yes normal to inspection Palpation (GI): Soft to palpation and nontender Auscultation: normal bowel sounds Skin General skin exam: no rashes or lesions noted Neuro General: patient oriented x3 and no focal motor deficits Extrem General: Yes full ROM Psych Appearance: grossly normal Office Procedures Flu Questionnaire Does the patient have a severe egg allergy?: No Results AMB Hemoglobin A1c AMB Hemoglobin A1c 6.5 % Last Edit by DENYS Mccartney on 09/06/23 13:0 9 Immunizations flu vacc [id number] 6mos up(PF) 60 mcg(15 mcgx4)/0.5 mL IM syringe Performing Provider: Latanya Gonzales MD [facility] Documented (not given) by: DENYS Mccartney on 09/06/23 13:20 Reason Not Given: Not Given Results Reviewed Results Reviewed: Laboratory Last Values Hgb A1c (Clinic) 6.5 % (4.0-6.0) H 09/06/23 13:08 Assessment and Plan Assessment & Plan (1) Physical exam: Code(s): Z00.00 - Encounter for general adult medical examination without abnormal findings Plan: Repeat in a year. 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 A1c goal is equal or less than 7%. Orders: Orders Microalbumin, Random (w Creat) Today E11.9 - Type 2 diabetes mellitus without complications Vitamin D 25-OH Total Today E55.9 - Vitamin D deficiency, unspecified Comprehensive [place]. Panel Fast Today E11.9 - Type 2 diabetes mellitus without complications Lipid Panel Today E78.5 - Hyperlipidemia, unspecified Complete Blood Count Auto Diff Today D72.829 - Elevated white blood cell count, unspecified AMB Hemoglobin A1c Today E11.9 - Type 2 diabetes mellitus without complications Medications: New semaglutide (Ozempic) 1 mg (0.75 mL) subcut QWEEK 3.75 mL 6RF 30 days E11.9 - Type 2 diabetes mellitus without complications Refilled lisinopril 20 mg PO DAILY 90 tabs 3RF 90 days I10 - Essential (primary) hypertension loratadine 10 mg PO DAILY 30 ea 11RF Coding Level of Care Code Est Pt Prev Care 18-39y(39499) Diagnoses Physical exam Z00.00 Type 2 diabetes mellitus without complication, without long-term current use of insulin E11.9 Diabetes mellitus complication status: without complication Diabetes mellitus chcf insulin use: without chcf use Diabetes mellitus type: type 2 Time Spent (min) 33
[2023-09-06 12:47] VITALS: BP 118/60; BMI 37.0
== END 2023-09-06 13:09 | disposition home or self-care (01) ==
PROVIDERS: Visit Provider Internal Medicine
DX: Z00.00 Encounter for general adult medical examination without abnormal findings (principal); E11.9 Type 2 diabetes mellitus without complications
CPT/HCPCS: 83036; 99395

== ENCOUNTER 2023-09-12 07:49 | Outpatient (REF) | payer OTHER, SELFPAY ==
[2023-09-12 08:04] LABS: MANUAL DIFF FLAG NO
[2023-09-12 08:10] LABS: Basophils Absolute Auto 0.1 X10*3/uL (0.0-0.2); Basophils Percent Auto 0.6 % (0-2); Eosinophils Absolute Auto 0.2 X10*3/uL (0.0-0.4); Eosinophils Percent Auto 2.4 % (0-4); Hematocrit 40.6 % (42.0-52.0); Hemoglobin 14.1 g/dl (14.0-18.0); Imm Gran Abs Auto 0.02 X10*3/uL (0.00-0.03); Imm Gran Pct Auto 0.2 % (0.0-0.4); Lymphocytes Absolute Auto 3.2 X10*3/uL (1.2-4.9); Lymphocytes Percent Auto 40.1 % (20-40); Mean Corpuscular HGB Conc 34.7 g/dl (31.0-36.0); Mean Corpuscular Hemoglobin 29.9 pg (27.0-33.0); Mean Platelet Volume 9.3 fL (9.4-12.4); Monocytes Absolute Auto 0.6 X10*3/uL (0.1-1.2); Monocytes Percent Auto 6.9 % (2-11); Neutrophils Percent Auto 49.8 % (45-73); Platelet Count 256 X10*3/uL (160-400); Red Blood Count 4.72 X10*6/uL (4.60-5.80); Red Cell Distribution Width 12.1 % (11.0-16.0); White Blood Count 8.1 X10*3/uL (4.8-10.8)
[2023-09-12 08:31] LABS: Creatinine Urine 86.08 mg/dL; Microalbumin Urine < 5.0 mg/L
[2023-09-12 08:38] LABS: Alanine Aminotransferase 46 U/L (0-40); Albumin Level 4.4 g/dL (3.5-5.0); Alkaline Phosphatase 50 U/L (39-117); Anion Gap 9 (12-20); Aspartate Amino Transferase 38 U/L (5-37); Bilirubin Total 0.5 mg/dL (0.0-1.0); Blood Urea Nitrogen 13 mg/dL (9-16); Calcium 9.3 mg/dL (8.4-10.2); Carbon Dioxide 29 mmol/L (22-29); Chloride 103 mmol/L (96-108); Cholesterol 116 mg/dL (<200); Estimated Glomerular Filt Rate > 60; Glucose Fasting 116 mg/dL (60-99); HDL Cholesterol 32 mg/dL (>40); LDL Cholesterol Calculated 53 mg/dL (<100); Sodium 137 mmol/L (135-145); Total Protein 7.3 g/dL (6.5-8.0); Triglycerides 156 mg/dL (<150)
[2023-09-12 08:54] LABS: Vitamin D 25-OH Total 18.2 ng/mL (>30)
== END 2023-09-12 07:50 | disposition home or self-care (01) ==
LOC: HO.LAB 07:49
PROVIDERS: PCP Internal Medicine; Visit Provider Internal Medicine
DX: E55.9 Vitamin D deficiency, unspecified (principal); E11.9 Type 2 diabetes mellitus without complications; E78.5 Hyperlipidemia, unspecified; D72.829 Elevated white blood cell count, unspecified
CPT/HCPCS: 36415; 80053; 80061; 82306; 82570; 85025

== ENCOUNTER 2023-11-16 13:51 | Outpatient (AMB) | payer OTHER, SELFPAY ==
[2023-11-16 14:01] VITALS: BP 136/64; PULSE 94; BMI 36.5
--- NOTE | 2023-11-16 14:01 | MHC.OFFVIS ---
Intake Vital Signs 11/16/23 14:01 Height 5 ft 11 in Weight 261 lb 7.492 oz BMI 36.5 BP 136/64 Blood Pressure Location Lt brachial Position Sitting Pulse 94 Pulse Source Pulse Oximeter Intake Visit Reasons: 5 week follow up Intake Note: Pt presents to the office today for a 5 week follow up for abdominal pain. Pt states his abdominal pain is much better than it was before. Pt denies any N/V/D. Allergies Penicillins [PENICILLINS] Allergy (Intermediate, Verified 11/16/23 14:03) Hives HPI 5 week follow up HPI Details LAST VISIT: Chronic idiopathic constipation Abdominal pain, RUQ (right upper quadrant) Postprandial epigastric pain GERD (gastroesophageal reflux disease) Plan Discussed with patient avoiding dietary triggers and late night snacking. Patient will be started on pantoprazole in the morning and famotidine at bedtime. Possible gastroparesis either due to Ozempic or poorly controlled diabetes. Last A1c improved. Will check for celiac, check for pancreatic insufficiency, check lipase. Will book the patient for upper endoscopy to rule out gastritis, esophagitis, duodenitis, gastric or peptic ulcers, H pylori. H pylori breath test in the office today, will treat empirically if positive. I will see patient in 5 weeks, sooner on as needed basis. Patient is agreeable to this plan and verbalizes understanding of instructions. He was given the opportunity to ask questions and all questions answered. ? Thank you for allowing me to participate in his care Orders Orders H Pylori Breath Test Today Pancreatic Elastase-1 Today R10.9 Lipase Today R10.9 Transglutaminase Ab IgG Today R10.9 Transglutaminase IgA Today R10.9 Medications New pantoprazole take one tablet half an hour before breakfast 40 mg PO DAILY 30 tabs 2RF K21.9 famotidine (Pepcid) 20 mg PO BEDTIME 30 tabs 3RF K21.9 Discontinued ibuprofen Discontinued Reason: Doctor's Order 800 mg PO Q8H PRN 30 tabs 0RF pain S33.9XXA polyethylene glycol 3350 (Miralax) Discontinued Reason: Doctor's Order 17 grams PO DAILY 510 grams 2RF TODAY'S VISIT Patient is here today for follow-up. Patient reports that he has been feeling much better. Patient takes pantoprazole in the morning and famotidine and bedtime and his symptoms of acid reflux are suppressed. Diagnosed with H pylori couple months ago and treated with quadruple therapy. Patient reports that he completed all of his medications. Reports that he no longer has dyspepsia. Patient denies dysphagia or odynophagia. Patient did some of his lab work ordered by PCP, however some of the blood work that I have ordered was not done. Patient did not do the stool study either. Patient denies melena, hematochezia, unintentional weight loss or ribbon like stools. Patient reports that he is using senna at nighttime and is moving his bowels better [facility] Medical History Neuropathy Obese Hypovitaminosis D Allergic rhinitis Hemorrhoids Abdominal pain, RUQ (right upper quadrant) Hypertriglyceridemia Essential hypertension Diabetes mellitus Surgical History No pertinent past surgical history Family History Father Diabetes Hypertension Mother Diabetes Hypertension Stroke Maternal Grandmother Cancer Family/Other FH: mental illness Substance use disorder Maternal Aunt Diabetes Hypertension Paternal Aunt Diabetes Hypertension Social History Housing: Apartment Alcohol intake: former Patient Tobacco Use Status: Former Tobacco user Tobacco use type: Cigarette e-Cigarette/Vaping Use: Never Used Second Hand Smoke Exposure: No Substance Use Type: Marijuana service: No Current occupational status: employed Current occupational exposures/hazards: No Cognitive needs: No Hearing needs: No Vision needs: Yes Review of Systems Const Denies weight gain and Denies weight loss ENT Reports no additional complaints, Denies dysphagia and Denies odynophagia Card Reports no additional complaints Resp Reports no additional complaints GI Denies abdominal pain, Denies belching, Denies melena, Denies bloating, Denies change in bowel habits, Denies dysphagia, Denies excessive flatus, Denies dyspepsia, Denies heartburn, Denies diarrhea, Denies loose stools, Denies nausea, Denies odynophagia and Denies vomiting Reports no additional complaints Musc Reports no additional complaints Neuro Reports no additional complaints Psych Reports no additional complaints Endo Reports no additional complaints Physical Exam Vital Signs: Last Vital Signs Pulse 94 11/16/23 14:01 BP 136/64 11/16/23 14:01 BMI result Body Mass Index 36.5 Const General: healthy appearing, no acute distress and well developed Nutritional Appearance: well nourished Orientation/consciousness: patient oriented x3 Resp Effort & Inspection: normal respiratory effort, able to speak in complete sentences, no tracheal deviation and symmetric chest movement Auscultation: clear to auscultation bilaterally Cardio Rate: regular rate GI Inspection: Yes normal to inspection and No distended Palpation (GI): Soft to palpation, not firm, nontender and No hepatosplenomegaly present Auscultation: normal bowel sounds General: Yes no CVA tenderness Back/Spine/Pelvis Back: no CVA tenderness Skin General skin exam: elasticity normal, turgor normal and dry skin Neuro General: patient oriented x3 Psych Appearance: grossly normal Mental Status: mental status grossly normal Assessment & Plan Assessment & Plan (1) Chronic idiopathic constipation: Code(s): K59.04 - Chronic idiopathic constipation (2) Abdominal pain, RUQ (right upper quadrant): Code(s): R10.11 - Right upper quadrant pain (3) Postprandial epigastric pain: Code(s): R10.13 - Epigastric pain (4) GERD (gastroesophageal reflux disease): Code(s): K21.9 - Gastro-esophageal reflux disease without esophagitis Qualifiers: Esophagitis presence: esophagitis presence not specified Qualified Code(s): K21.9 - Gastro-esophageal reflux disease without esophagitis (5) Helicobacter pylori (H. pylori): Code(s): A04.8 - Other specified bacterial intestinal infections Plan Diagnosed with H pylori in August and treated with quadruple therapy. Will retest him. Patient was stopped taking pantoprazole and will take famotidine. Hold famotidine 24-48 hours before coming in for breath test. Will treat empirically if positive. Continue avoiding dietary triggers and late night snacking. Weight loss encouraged. Continue with senna daily. Patient was encouraged to increase fluid intake and activity to promote better bowel motility. I will see him in 5 weeks. We will discuss going for upper endoscopy then. Patient was encouraged to go to do blood work to check for celiac. Patient is agreeable to this plan and verbalizes understanding of instructions. He was given the opportunity to ask questions and all questions answered. Thank you for allowing me to participate in his care Orders: Orders H Pylori Breath Test Today K21.9 - Gastro-esophageal reflux disease without esophagitis Medications: Changed From famotidine (Pepcid) 20 mg PO BEDTIME 30 tabs 3RF K21.9 - Gastro-esophageal reflux disease without esophagitis To famotidine (Pepcid) 20 mg PO BID 30 tabs 3RF K21.9 - Gastro-esophageal reflux disease without esophagitis Coding Level of Care Code Est Pt Level 4 (38369) Diagnoses Chronic idiopathic constipation K59.04 Abdominal pain, RUQ (right upper quadrant) R10.11 Postprandial epigastric pain R10.13 Gastroesophageal reflux disease, unspecified whether esophagitis present K21.9 Esophagitis presence: esophagitis presence not specified Helicobacter pylori (H. pylori) A04.8 Time Spent (min) 35 Comment 20 minutes spent with patient and additional 15 minutes spent reviewing his for records
== END 2023-11-16 14:23 | disposition home or self-care (01) ==
PROVIDERS: PCP Internal Medicine; Visit Provider Nurse Practitioner Family
DX: K59.04 Chronic idiopathic constipation (principal); R10.11 Right upper quadrant pain; R10.13 Epigastric pain; K21.9 Gastro-esophageal reflux disease without esophagitis; A04.8 Other specified bacterial intestinal infections
CPT/HCPCS: 99214

== ENCOUNTER → 2023-11-16 13:51 | Outpatient (BNVA) | payer OTHER, SELFPAY | PROVIDERS: PCP Internal Medicine; Visit Provider Nurse Practitioner Family | DX: K59.04 Chronic idiopathic constipation (principal); K21.9 Gastro-esophageal reflux disease without esophagitis; A04.8 Other specified bacterial intestinal infections; R10.11 Right upper quadrant pain; R10.13 Epigastric pain | CPT/HCPCS: 99212 ==

== ENCOUNTER 2023-12-01 15:39 | Outpatient (REF) | payer OTHER, SELFPAY ==
[2023-12-04 12:44] LABS: H Pylori Breath Test Negative (Negative)
== END 2023-12-01 15:40 | disposition home or self-care (01) ==
LOC: HO.LNP 15:39
PROVIDERS: PCP Internal Medicine; Visit Provider Nurse Practitioner Family
DX: K21.9 Gastro-esophageal reflux disease without esophagitis (principal); Z11.0 Encounter for screening for intestinal infectious diseases
CPT/HCPCS: 83013; 99211

== ENCOUNTER 2023-12-01 15:39 | Outpatient (AMB) | payer OTHER, SELFPAY ==
--- NOTE | 2023-12-01 15:54 | AM.OFFVISNUR ---
Intake Intake Visit Reasons: H.pylori Breath Test Allergies Penicillins [PENICILLINS] Allergy (Intermediate, Verified 11/16/23 14:03) Hives Nursing Note Patient presents for collection of H Pylori breath test. Patient has been fasting for 1 hour (nothing to eat, drink, no chewing gum or smoking) has not taken any antacid medication for at least 2 weeks and has no allergies to artificial sweeteners.?? Coding Level of Care Code Established Pt Est Pt Level 1 (01876) Patient Type Established History Problem Focused Exam Problem Focused Medical Decision Making Straight Forward Diagnoses Helicobacter pylori (H. pylori) A04.8 Assessment & Plan Assessment & Plan (1) Helicobacter pylori (H. pylori): Code(s): A04.8 - Other specified bacterial intestinal infections Plan Patient presents for collection of H Pylori breath test. Patient has been fasting for 1 hour (nothing to eat, drink, no chewing gum or smoking) has not taken any antacid medication for at least 2 weeks and has no allergies to artificial sweeteners.???This test checks for an overgrowth of bacteria in your stomach. We all have bacteria but some may have more than others. It is treatable. if the test comes back negative there is nothing else to do. If the test result is positive we will treat you with 2 antibiotics and a medication to decrease the acid in your stomach (PPI) for 2 weeks. Two weeks after you have completed the treatment we will retest you to make sure the overgrowth has resolved. Patient Instructions: Process for specimen collection and reason for testing was explained to the patient. Specimen collection. Patient instructed to take a deep breath and then exhale into the blue bag, filling it up as much as possible. Patient instructed to drink a mixture of water and the artificial sweetener with a straw. A 15 minute wait period was observed. Patient instructed to take a deep breath and then exhale into the pink bag, filling it up as much as possible.??
== END 2023-12-01 16:00 | disposition home or self-care (01) ==
PROVIDERS: PCP Internal Medicine; Visit Provider Nurse Practitioner Family
DX: A04.8 Other specified bacterial intestinal infections (principal)

== ENCOUNTER 2023-12-12 10:13 | Outpatient (REF) | payer OTHER, SELFPAY ==
[2023-12-12 11:48] LABS: Lipase 23 U/L (8-78)
[2023-12-14 23:28] LABS: Transglutaminase Ab IgG <1.0 U/mL; Transglutaminase IgA <1.0 U/mL
== END 2023-12-12 10:14 | disposition home or self-care (01) ==
LOC: HO.LAB 10:13
PROVIDERS: Nurse Practitioner Family; PCP Internal Medicine; Visit Provider Internal Medicine
DX: R10.9 Unspecified abdominal pain (principal)
CPT/HCPCS: 36415; 83690; 86364

== ENCOUNTER 2023-12-13 08:26 | Outpatient (REF) | payer OTHER, SELFPAY ==
[2023-12-19 19:39] LABS: Pancreatic Elastase-1 42 mcg/g
== END 2023-12-13 08:27 | disposition home or self-care (01) ==
LOC: HO.LNP 08:26
PROVIDERS: Visit Provider Nurse Practitioner Family
DX: R10.9 Unspecified abdominal pain (principal)
CPT/HCPCS: 82656

== ENCOUNTER 2023-12-21 10:04 | Outpatient (AMB) | payer OTHER, SELFPAY ==
--- NOTE | 2023-12-21 10:10 | MHC.OFFVIS ---
Vital Signs 12/21/23 10:12 Height 5 ft 11 in Weight 264 lb 8.875 oz BMI 36.9 BP 119/65 Blood Pressure Location Lt brachial Position Sitting Pulse 84 Intake Visit Reasons: 5 week follow up Intake Note: Cirilo presents in the office as a 5 week follow up. CC: He had tests done that he would like results of. All medications that were given to him for acid reflux he is not taking due to gas issues. Battery Recharger Required: Yes Battery Recharger Name: [id number] Erasmo Allergies Penicillins [PENICILLINS] Allergy (Intermediate, Verified 12/21/23 10:12) Hives HPI HPI 5 week follow up: Details: LAST VISIT Chronic idiopathic constipation Abdominal pain, RUQ (right upper quadrant) Postprandial epigastric pain GERD (gastroesophageal reflux disease) Helicobacter pylori (H. pylori) Plan Diagnosed with H pylori in August and treated with quadruple therapy. Will retest him. Patient was stopped taking pantoprazole and will take famotidine. Hold famotidine 24-48 hours before coming in for breath test. Will treat empirically if positive. Continue avoiding dietary triggers and late night snacking. Weight loss encouraged. Continue with senna daily. Patient was encouraged to increase fluid intake and activity to promote better bowel motility. I will see him in 5 weeks. We will discuss going for upper endoscopy then. Patient was encouraged to go to do blood work to check for celiac. Patient is agreeable to this plan and verbalizes understanding of instructions. He was given the opportunity to ask questions and all questions answered. ? Thank you for allowing me to participate in his care Orders Orders H Pylori Breath Test Today K21.9 Medications Changed Changed From famotidine (Pepcid) 20 mg PO BEDTIME 30 tabs 3RF K21.9 Changed To famotidine (Pepcid) 20 mg PO BID 30 tabs 3RF K21.9 TODAY'S VISIT Patient is here today for follow-up and to discuss treatment. H pylori breath test was negative. Patient continues to have epigastric pain and dyspepsia. Diagnosed with pancreatic insufficiency, however patient gave sample that had loose stools, could be false positive test. Patient continues to have lots of gas, his stools normalized more now. He is taking Linzess every morning. Has not been taking pantoprazole and ran out of famotidine. Patient reports occasional dyspepsia without dysphagia or odynophagia. Denies any melena, hematochezia, unintentional weight loss or ribbon like stools. Patient denies any issues with anesthesia in the past. No history of sleep apnea. Patient is on lisinopril and Ozempic. We will discuss today going for upper endoscopy to further evaluate [facility] Medical History Neuropathy Obese Hypovitaminosis D Allergic rhinitis Hemorrhoids Abdominal pain, RUQ (right upper quadrant) Hypertriglyceridemia Essential hypertension Diabetes mellitus Surgical History No pertinent past surgical history Family History Father Diabetes Hypertension Mother Diabetes Hypertension Stroke Maternal Grandmother Cancer Family/Other FH: mental illness Substance use disorder Maternal Aunt Diabetes Hypertension Paternal Aunt Diabetes Hypertension Social History Housing: Apartment Alcohol intake: former Patient Tobacco Use Status: Former Tobacco user Tobacco use type: Cigarette e-Cigarette/Vaping Use: Never Used Second Hand Smoke Exposure: No Substance Use Type: Marijuana service: No Current occupational status: employed Current occupational exposures/hazards: No Cognitive needs: No Hearing needs: No Vision needs: Yes Review of Systems Const Denies weight gain and Denies weight loss ENT Reports no additional complaints, Denies dysphagia and Denies odynophagia Card Reports no additional complaints Resp Reports no additional complaints GI Reports abdominal pain, Reports belching, Denies melena, Reports bloating, Denies change in bowel habits, Denies dysphagia, Denies excessive flatus, Denies dyspepsia, Reports heartburn, Denies diarrhea, Denies loose stools, Denies nausea, Denies odynophagia and Denies vomiting Reports no additional complaints Musc Reports no additional complaints Neuro Reports no additional complaints Psych Reports no additional complaints Endo Reports no additional complaints Physical Exam Vital Signs: Last Vital Signs Pulse 84 04/24/24 10:12 BP 119/65 12/21/23 10:12 BMI result Body Mass Index 36.9 Const General: healthy appearing and no acute distress Nutritional Appearance: obese Orientation/consciousness: patient oriented x3 Resp Effort & Inspection: normal respiratory effort, able to speak in complete sentences, no tracheal deviation and symmetric chest movement Auscultation: clear to auscultation bilaterally Cardio Rate: regular rate GI Inspection: Yes normal to inspection, No distended and Yes obesity Palpation (GI): Soft to palpation, not firm, nontender and No hepatosplenomegaly present Auscultation: normal bowel sounds General: Yes no CVA tenderness Back/Spine/Pelvis Back: no CVA tenderness Skin General skin exam: elasticity normal, turgor normal and dry skin Neuro General: patient oriented x3 Psych Appearance: grossly normal Mental Status: mental status grossly normal Results Reviewed Results Reviewed: Laboratory Tests 09/12/23 12/01/23 12/12/23 08:03 16:07 10:26 AST 38 H ALT 46 H Lipase 23 25-OH Vitamin D Total 18.2 L Stool Pancreat Elastase Tiss Transglutamin IgG <1.0 Tiss Transglutamin IgA <1.0 H. pylori Breath Test Negative 12/13/23 03:26 AST ALT Lipase 25-OH Vitamin D Total Stool Pancreat Elastase 42 L Tiss Transglutamin IgG Tiss Transglutamin IgA H. pylori Breath Test Assessment & Plan Assessment & Plan (1) Chronic idiopathic constipation: Code(s): K59.04 - Chronic idiopathic constipation Category: Medical (2) Abdominal pain, RUQ (right upper quadrant): Code(s): R10.11 - Right upper quadrant pain Category: Medical (3) Postprandial epigastric pain: Code(s): R10.13 - Epigastric pain (4) GERD (gastroesophageal reflux disease): Code(s): K21.9 - Gastro-esophageal reflux disease without esophagitis Qualifiers: Esophagitis presence: esophagitis presence not specified Qualified Code(s): K21.9 - Gastro-esophageal reflux disease without esophagitis (5) Helicobacter pylori (H. pylori): Code(s): A04.8 - Other specified bacterial intestinal infections (6) Exocrine pancreatic insufficiency: Code(s): K86.81 - Exocrine pancreatic insufficiency Plan Pancreatic insufficiency, however test could be invalid as the stool sample was to lose. Patient will repeat the test, however I will start him on Creon with meals up to 4 times a day to see if his symptoms will go away. Patient will start taking pantoprazole in the morning and will take famotidine at bedtime on as needed basis. Patient was encouraged to avoid dietary triggers and late night snacking. Staying upright for minimum 3 hours after meals discussed with patient. Patient will be sent for upper endoscopy to rule out gastritis, esophagitis, duodenitis, gastric or peptic ulcers, celiac, H pylori, Loyd's. No issues with anesthesia in the past. Patient is on Ozempic and is aware to stop it minimum 7 days before procedure. Patient is also on lisinopril knows not to take the medication day of procedure. Patient is not on any anticoagulation medication. I will see patient after the procedure, sooner on as needed basis. Patient is agreeable to this plan and verbalizes understanding of instructions. He was given the opportunity to ask questions and all questions answered. Thank you for allowing me to participate in his care Orders: Orders Pancreatic Elastase-1 Today R10.9 - Unspecified abdominal pain Medications: New pecyzo-dptgmaph-prvakio 36,000-114,000- 180,000 unit (Creon) administer with meals and/or snacks 1 cap PO QID 120 caps 3RF K86.89 - Other specified diseases of pancreas Changed From famotidine (Pepcid) 20 mg PO BID 30 tabs 3RF K21.9 - Gastro-esophageal reflux disease without esophagitis To famotidine (Pepcid) 20 mg PO BEDTIME 30 tabs 3RF K21.9 - Gastro-esophageal reflux disease without esophagitis Refilled linaclotide (Linzess) 145 mcg PO DAILY 30 caps 2RF pantoprazole take one tablet half an hour before breakfast 40 mg PO DAILY 90 days 90 tabs 3RF K21.9 - Gastro-esophageal reflux disease without esophagitis Discontinued bismuth subsalicylate Discontinued Reason: Doctor's Order 2 tabs PO QID 14 days 112 tabs 0RF A04.8 - Other specified bacterial intestinal infections Coding Level of Care Code Est Pt Level 4 (61447) Diagnoses Chronic idiopathic constipation K59.04 Abdominal pain, RUQ (right upper quadrant) R10.11 Postprandial epigastric pain R10.13 Gastroesophageal reflux disease, unspecified whether esophagitis present K21.9 Esophagitis presence: esophagitis presence not specified Helicobacter pylori (H. pylori) A04.8 Exocrine pancreatic insufficiency K86.81 Time Spent (min) 40 Comment 25 minutes spent with patient and additional 15 minutes spent reviewing his records
[2023-12-21 10:12] VITALS: BP 119/65; PULSE 84; BMI 36.9
== END 2023-12-21 11:46 | disposition home or self-care (01) ==
PROVIDERS: PCP Internal Medicine; Visit Provider Nurse Practitioner Family
DX: K59.04 Chronic idiopathic constipation (principal); R10.11 Right upper quadrant pain; R10.13 Epigastric pain; K21.9 Gastro-esophageal reflux disease without esophagitis; A04.8 Other specified bacterial intestinal infections; K86.81 Exocrine pancreatic insufficiency
CPT/HCPCS: 99214

== ENCOUNTER → 2023-12-21 10:04 | Outpatient (BNVA) | payer OTHER, SELFPAY | PROVIDERS: PCP Internal Medicine; Visit Provider Nurse Practitioner Family | DX: K59.04 Chronic idiopathic constipation (principal); R10.11 Right upper quadrant pain; R10.13 Epigastric pain; K21.9 Gastro-esophageal reflux disease without esophagitis; K86.81 Exocrine pancreatic insufficiency; A04.8 Other specified bacterial intestinal infections | CPT/HCPCS: 99212 ==

== ENCOUNTER 2024-04-01 | Outpatient (REF) | payer OTHER, SELFPAY ==
[2024-04-11 21:43] LABS: Pancreatic Elastase-1 352 mcg/g
== END 2024-04-01 00:01 | disposition home or self-care (01) ==
LOC: HO.LNP
PROVIDERS: Visit Provider Nurse Practitioner Family
DX: R10.9 Unspecified abdominal pain (principal)
CPT/HCPCS: 82656

== ENCOUNTER 2024-04-26 11:09 | Day surgery (SDC) | payer OTHER, SELFPAY ==
--- NOTE | 2024-04-25 08:50 | HO.ANESPROP2 ---
HPI - Anesthesia Eval Consult details Narrative: 33yo M for Upper Endoscopy Anesthesia Pre-Procedure Meds Is the patient on any of the following meds?: GLP1/DPP4 PMFSH Active Problems Active Problems: All Active Problems Leukocytosis (Acute) Lumbosacral ligament sprain (Acute) Chronic idiopathic constipation (Acute) Physical exam (Acute) Neuropathy (Acute) Obese (Acute) Lumbar spondylosis (Acute) Hypovitaminosis D (Acute) Allergic rhinitis (Acute) Hemorrhoids (Acute) Abdominal pain, RUQ (right upper quadrant) (Acute) Hypertriglyceridemia (Acute) Essential hypertension (Acute) Diabetes mellitus (Acute) Past Medical History Medical History Neuropathy Obese Hypovitaminosis D Allergic rhinitis Hemorrhoids Abdominal pain, RUQ (right upper quadrant) Hypertriglyceridemia Essential hypertension Diabetes mellitus Family History Family History Father Diabetes Hypertension Mother Diabetes Hypertension Stroke Maternal Grandmother Cancer Family/Other FH: mental illness Substance use disorder Maternal Aunt Diabetes Hypertension Paternal Aunt Diabetes Hypertension Surgical History Surgical History No pertinent past surgical history Social History Social History Housing: Apartment Alcohol intake: former Patient Tobacco Use Status: Former Tobacco user Tobacco use type: Cigarette e-Cigarette/Vaping Use: Never Used Second Hand Smoke Exposure: No Substance Use Type: Marijuana service: No Current occupational status: employed Current occupational exposures/hazards: No Cognitive needs: No Hearing needs: No Vision needs: Yes Meds Allergies Allergy/AdvReac Type Severity Reaction Status Date / Time Penicillins [PENICILLINS] Allergy Intermediate Hives Verified 05/02/24 15:59 Assessment and Plan Assessment Anesthesia Assessment: Chart Reviewed
[2024-04-26 11:39] LABS: Glucose, Whole Blood 127 mg/dL (60-115)
[2024-04-26 11:45] VITALS: BP 138/78; PULSE 80; RESP 18; TEMP 36.7; O2SAT 97; BMI 37.7
[2024-04-26] MEDS: Lactated Ringers 1,000 ML 100 ML IVCONT (11:55)
--- NOTE | 2024-04-26 12:04 | MHC.SHP ---
Pre-Procedural Eval Section A - 24 Hr Update-Section A only Date of Service: 04/26/24 Section B - Complete if H&P > 30 days Chief Complaint: Abd pain Details of Present Illness: Neuropathy Obese Hypovitaminosis D Allergic rhinitis Hemorrhoids Abdominal pain, RUQ (right upper quadrant) Hypertriglyceridemia Essential hypertension Diabetes mellitus Surgical History No pertinent past surgical history Allergies: Allergies Allergy/AdvReac Type Severity Reaction Status Date / Time Penicillins [PENICILLINS] Allergy Intermediate Hives Verified 12/21/23 10:12 Review of Systems Review of Systems Comment: Ten point ROS negative Exam Exam Comment: Gen appear: No acute distress HEENT: no icterus Chest: No overt resp distress Abd: soft, nontender, nondistended Psych: Stable affect, answering questions appropriately Neuro: A/Ox3 noted to move all extremities spontaneously Ext: no peripheral edema Plan Diagnosis/Plan: Unchanged I have reviewed the history and physical and performed a pertinent physical examination on my patient. No changes have occurred unless specified. Time Spent With Patient Time: Total time managing care of this patient today ____ minutes.
--- NOTE | 2024-04-26 12:05 | P.OP_ITS ---
Operative Note Operative Note Date of Service: 04/26/24 Narrative: Procedure: Esophagogastroduodenoscopy Endoscopist: Lori Lo MD Indication: Abd pain Anesthesia Provider: Dr Wolf Trimble Anesthesia Type: MAC ?? EGD Procedure:?? The procedure, indications, preparation and potential complications were reviewed with the patient with the help of a Maltese interprter, who indicated understanding and gave written informed consent to proceed. A physical exam was performed. The endoscope was introduced through the mouth, and advanced to the second part of duodenum. The mucosa was carefully examined on slow withdrawal of the endoscope. The patient tolerated the procedure well. There were no immediate complications.? ? EGD Findings:? * Esophagus:? Normal mucosa noted in the entire esophagus. The Z line was at 42 cm. Middle and lower esophagus forceps biopsies were obtained to rule out eosinophilic esophagitis. THere was a small hiatal hernia. * Stomach:? Normal mucosa was noted in the stomach. Retroflexion was performed in the cardia. Random cold forceps gastric biopsies were taken to rule out H Pylori infection. * Duodenum:? Normal mucosa was noted in the whole of the examined duodenum. Cold forceps biopsies were taken from duodenal bulb and second portion of the duodenum to rule out celiac sprue. ? EGD Impressions:? * Normal esophagus (biopsy) * Hiatal hernia * Normal stomach (biopsy) * Normal duodenum (biopsy) ?? Recommendations:?? * Follow biopsy results. Our office will call or send a letter with results within 7-10 days. * If H pylori +, patient will be prescribed eradication therapy followed by test of cure. * Avoid NSAIDs. Above has been reviewed with the patient.
--- NOTE | 2024-04-26 12:27 | HO.ANESPROP2 ---
HPI - Anesthesia Eval Consult details Narrative: for EGD. PMFSH Active Problems Active Problems: All Active Problems Leukocytosis (Acute) Lumbosacral ligament sprain (Acute) Chronic idiopathic constipation (Acute) Physical exam (Acute) Neuropathy (Acute) Obese (Acute) Lumbar spondylosis (Acute) Hypovitaminosis D (Acute) Allergic rhinitis (Acute) Hemorrhoids (Acute) Abdominal pain, RUQ (right upper quadrant) (Acute) Hypertriglyceridemia (Acute) Essential hypertension (Acute) Diabetes mellitus (Acute) Past Medical History Medical History Neuropathy Obese Hypovitaminosis D Allergic rhinitis Hemorrhoids Abdominal pain, RUQ (right upper quadrant) Hypertriglyceridemia Essential hypertension Diabetes mellitus Family History Family History Father Diabetes Hypertension Mother Diabetes Hypertension Stroke Maternal Grandmother Cancer Family/Other FH: mental illness Substance use disorder Maternal Aunt Diabetes Hypertension Paternal Aunt Diabetes Hypertension Family history of problems with anesthesia: No Surgical History Surgical History No pertinent past surgical history History of Problems with Anesthesia: No Social History Social History Housing: Apartment Alcohol intake: former Patient Tobacco Use Status: Former Tobacco user Tobacco use type: Cigarette e-Cigarette/Vaping Use: Never Used Second Hand Smoke Exposure: No Substance Use Type: Marijuana Substance Use Frequency: Daily Have you been hit, kicked, punched, or otherwise hurt by someone within the past year? If so, by whom?: No Are you DNR?: No Advance Directives: No Advance Directives Information Provided: Yes Recently lost weight without trying: No Nutrition Risks: No Nutritional Risk service: No Current occupational status: employed Current occupational exposures/hazards: No Cognitive needs: No Hearing needs: No Vision needs: Yes Meds Allergies Allergy/AdvReac Type Severity Reaction Status Date / Time Penicillins [PENICILLINS] Allergy Intermediate Hives Verified 12/21/23 10:12 Active Medications: Current Medications Lactated Ringer's (Lr) 1,000 mls @ 100 mls/hr IVCONT .Q10H JARRETT Last Admin: 04/26/24 11:55 Dose: 100 mls/hr Exam Height,Weight and Vital Signs: Height 5 ft 11 in Weight 122.47 kg Last Vital Signs Temp 98.1 F 04/26/24 11:45 Pulse 80 04/26/24 11:45 Resp 18 04/26/24 11:45 BP 138/78 04/26/24 11:45 Pulse Ox 97 04/26/24 11:45 O2 Del Method Room Air 04/26/24 11:45 Pertinent Lab Results Pertinent Lab Results: Laboratory Tests 04/26/24 11:36 POC Glucose 127 H Airway Mallampati Class: II (huge neck) TM Dist: >3cm Neck ROM: Full Loose/Missing/Broken Teeth: No Heart: ok Lungs: ok Other: Probable NARCISO. Assessment and Plan Assessment Anesthesia Assessment: Anesthesia Plan Discussed and Chart Reviewed Final Anesthetic Review Family History of Problems with Anesthesia: No History of Problems with Anesthesia: No NPO: Yes ASA Class: III Final Preanesthetic Review: No Changes in Pt Med Stat, Meds/Allgs Chart Reviewed, Consent Obtained/Reviewed and Anes Risks/Benef Reviewed Patient Risk: Intermediate Procedure Risk: Intermediate Anesthetic Plan Anesthetic Plan: Agree w/ Assess. and Plan and TIVA Disposition: Standard PACU
[2024-04-26 13:09] VITALS: BP 113/65; PULSE 90; RESP 18; TEMP 36.8; O2SAT 94
[2024-04-26 13:24] VITALS: BP 130/71; PULSE 85; RESP 18; O2SAT 97
[2024-04-26 13:39] VITALS: BP 135/89; PULSE 81; RESP 18; TEMP 36.8; O2SAT 97
== END 2024-04-26 14:17 | disposition home or self-care (01) ==
PROVIDERS: PCP Internal Medicine; Visit Provider Internal Medicine
PROC: 0DJ08ZZ Inspection of Upper Intestinal Tract, Via Natural or Artificial Opening Endoscopic (ICD-10-PCS; CPT 43235; principal; 2024-04-26 12:20)
DX: K21.9 Gastro-esophageal reflux disease without esophagitis (principal); R10.11 Right upper quadrant pain; A04.8 Other specified bacterial intestinal infections; K44.9 Diaphragmatic hernia without obstruction or gangrene; I10 Essential (primary) hypertension; E11.9 Type 2 diabetes mellitus without complications; G62.9 Polyneuropathy, unspecified; K59.04 Chronic idiopathic constipation; E66.9 Obesity, unspecified; Z68.36 Body mass index [BMI] 36.0-36.9, adult; Z88.0 Allergy status to penicillin; Z79.899 Other long term (current) drug therapy; Z87.891 Personal history of nicotine dependence
CPT/HCPCS: 43239; 82947; 88305; 88313; 88342; J2704

== ENCOUNTER → 2024-04-26 11:09 | Outpatient (BNV) | payer OTHER, SELFPAY | PROVIDERS: PCP Internal Medicine; Visit Provider Internal Medicine | DX: K21.00 Gastro-esophageal reflux disease with esophagitis, without bleeding (principal) | CPT/HCPCS: 43239 ==

== ENCOUNTER 2024-05-02 15:32 | Outpatient (AMB) | payer OTHER, SELFPAY ==
[2024-05-02 15:33] VITALS: BP 130/82; PULSE 96; O2SAT 98; BMI 37.1
--- NOTE | 2024-05-02 15:33 | MHC.PC.OV ---
Vital Signs 05/02/24 15:33 Height 5 ft 11 in Weight 266 lb BMI 37.1 BP 130/82 Blood Pressure Location Lt brachial Position Sitting Pulse 96 Pulse Source Pulse Oximeter Pulse Oximetry (%) 98 Oxygen Delivery Method Room Air Intake Visit Reasons: DM Access Clerk Required: No Accompanied by: Self / Same As Patient Allergies Penicillins [PENICILLINS] Allergy (Intermediate, Verified 05/02/24 15:59) Hives Medication List - Last Reconciled 05/02/24 by Latanya Gonzales MD back brace As directed blood pressure test kit-large (Advocate Blood Pressure Monitor kit) As directed blood sugar diagnostic (FreeStyle Test strips) Use 1 test strip once a day blood-glucose meter (FreeStyle Gordon Lite kit) As directed docusate sodium 100 mg PO BID PRN ergocalciferol (vitamin D2) (Vitamin D2) 1,250 mcg PO QWEEK 90 days famotidine (Pepcid) 20 mg PO BEDTIME lancets (FreeStyle Lancets) Use 1 lancet once a day as needed linaclotide (Linzess) 145 mcg PO DAILY rymcbw-hodwwfub-brqdsvw 36,000-114,000- 180,000 unit (Creon) 1 cap PO QID lisinopril 20 mg PO DAILY 90 days loratadine 10 mg PO DAILY metformin 1,000 mg PO BID 30 days pantoprazole 40 mg PO DAILY 90 days semaglutide (Ozempic) 1 mg (0.75 mL) subcut QWEEK 30 days sennosides (Natural Senna Laxative) 8.6 mg PO BEDTIME Tobacco use date assessed: 09/06/23 Dental Screening Dental Screen Date: 09/06/23 HPI HPI Comments History of Present Illness Details This is a 33-year-old male with diabetes mellitus type 2, hypertension, chronic idiopathic constipation and chronic GERD that comes today for follow-up on his conditions. A1c within goal. Blood pressure stable. Constipation well controlled with Linzess. GERD stable with PPIs and had an endoscopy recently which will discuss with Gastroenterology. Complains of chest pain that happens at rest located in the middle of the chest and resolve on its own. No associated symptoms with it. [facility] Medical History (Updated 05/02/24 @ 17:44 by Latanya Gonzales MD) Neuropathy Obese Hypovitaminosis D Allergic rhinitis Hemorrhoids Abdominal pain, RUQ (right upper quadrant) Hypertriglyceridemia Essential hypertension Diabetes mellitus Surgical History No pertinent past surgical history Family History Father Diabetes Hypertension Mother Diabetes Hypertension Stroke Maternal Grandmother Cancer Family/Other FH: mental illness Substance use disorder Maternal Aunt Diabetes Hypertension Paternal Aunt Diabetes Hypertension Social History Housing: Apartment Alcohol intake: former Patient Tobacco Use Status: Former Tobacco user Tobacco use type: Cigarette e-Cigarette/Vaping Use: Never Used Second Hand Smoke Exposure: No Substance Use Type: Marijuana service: No Current occupational status: employed Current occupational exposures/hazards: No Cognitive needs: No Hearing needs: No Vision needs: Yes Questionnaire PHQ-9 Over the last 2 weeks, how often have you been bothered by any of the following problems? 1. Little interest or pleasure in doing things: not at all 2. Feeling down, depressed, or hopeless: not at all 3. Trouble falling or staying asleep, or sleeping too much: not at all 4. Feeling tired or having little energy: not at all 5. Poor appetite or overeating: not at all 6. Feeling bad about yourself - or that you are a failure or have let yourself or your family down: not at all 7. Trouble concentrating on things, such as reading the newspaper or watching television: not at all 8. Moving or speaking so slowly that other people could have noticed. Or the opposite - being so fidgety or restless that you have been moving around a lot more than usual: not at all 9. Thoughts that you would be better off or of hurting yourself in some way: not at all Total score: 0 Depression Screening Interpretation: Negative Depression Screening Done: Yes 10809 - PHQ-9 Billing: Yes Source: Developed by Drs. Julio Williamson, Erendira Fermin, Ganga Crow and colleagues, with an educational lv from [employer]. Thrive Questionnaire Date Thrive assessed: 12/20/22 AUDIT C Alcohol Use Questionnaire (AUDIT-C) 1. How often do you have a drink containing alcohol?: Monthly or less 2. How many drinks containing alcohol do you have on a typical day when you are drinking?: 1 or 2 3. How often do you have six or more drinks on one occasion?: Never Total Score: 1 ANAI-7 AMB Questionnaire ANAI-7 Date ANAI - 7 assessed: 05/02/24 Feeling nervous, anxious, or on edge: 0 = Not at all Not being able to stop or control worryin = Not at all Worrying too much about different things: 0 = Not at all Trouble relaxin = Not at all Being so restless that it is hard to sit still: 0 = Not at all Becoming easily annoyed or irritable: 0 = Not at all Feeling afraid as if something awful might happen: 0 = Not at all Total ANAI-7 score (0-4 normal; 5-9 mild; 10-14 moderate; 15-21 severe): 0 Source: Developed by Drs. Julio Williamson, Erendira Fermin, Ganga Crow and colleagues, with an educational lv from [employer]. ANAI-7 Assessment Billing ANAI-7 Assessment Tool: ANAI-7 Assessment 29167 Review of Systems Const All systems reviewed & are unremarkable except as noted in HPI and below Card Denies chest pain at rest, Denies chest pain with activity, Denies edema, Denies irregular heart rhythm, Denies claudication, Denies dyspnea, Denies dyspnea on exertion, Denies orthopnea, Denies paroxysmal nocturnal dyspnea and Denies slow heart rate Resp Denies cough, Denies dyspnea and Denies dyspnea on exertion GI Denies abdominal pain, Denies change in bowel habits, Denies excessive flatus, Denies nausea and Denies vomiting Denies urinary hesitancy, Denies urinary incontinence and Denies urinary urgency Musc Denies atrophy, Denies deformity and Denies limited range of motion Physical exam (Primary Care) Vital Signs: Last Vital Signs Pulse 96 05/02/24 15:33 BP 130/82 05/02/24 15:33 Pulse Ox 98 05/02/24 15:33 Oxygen Delivery Method Room Air 05/02/24 15:33 BMI result Body Mass Index 37.1 BMI Assessment/Plan discussion: High BMI High, discussed plan: lifestyle, weight reduction, dietary and physical activity Tobacco/Smoking Status: Tobacco use Status Tobacco use date assessed 09/06/23 05/02/24 15:34 Patient Tobacco Use Status Former Tobacco user 05/02/24 15:34 Tobacco use type Cigarette 05/02/24 15:34 e-Cigarette/Vaping Use Never Used 05/02/24 15:34 PHQ-9: PHQ-9 Score PHQ-9: Total score 0 05/02/24 16:22 Depression Screening Interpretation: Negative Thrive Assessment: Date of Thrive Assessment Date Thrive assessed 12/20/22 05/02/24 15:34 Resp Effort & Inspection: normal respiratory effort Auscultation: clear to auscultation bilaterally Cardio Jugular venous distension: no JVD Rate: regular rate Rhythm: regular rhythm Heart sounds: S1 normal heart sound present and S2 normal heart sound present Extrem General: Yes full ROM Results AMB Hemoglobin A1c AMB Hemoglobin A1c 6.6 % Last Edit by DENYS Wilson on 05/02/24 15:54 Results Reviewed Results Reviewed: Laboratory Last Values Hgb A1c (Clinic) 6.6 % (4.0-6.0) H 05/02/24 15:54 Assessment and Plan Assessment & Plan (1) Diabetes mellitus: Code(s): E11.9 - Type 2 diabetes mellitus without complications Qualifiers: Diabetes mellitus type: type 2 Diabetes mellitus truck terminal manager insulin use: without residential use Diabetes mellitus complication status: without complication Qualified Code(s): E11.9 - Type 2 diabetes mellitus without complications Plan: Decrease metformin. Increase Ozempic. A1c goal is equal or less than 7%. (2) Essential hypertension: Code(s): I10 - Essential (primary) hypertension Plan: Continue lisinopril. Blood pressure goal is equal or less than 130/80. (3) Chronic idiopathic constipation: Code(s): K59.04 - Chronic idiopathic constipation Plan: Continue Linzess. (4) Chronic GERD: Code(s): K21.9 - Gastro-esophageal reflux disease without esophagitis Plan: Continue PPIs. Orders: Orders AMB Hemoglobin A1c Today E11.9 - Type 2 diabetes mellitus without complications Lipid Panel 4 Months E11.9 - Type 2 diabetes mellitus without complications, E78.5 - Hyperlipidemia, unspecified Vitamin D 25-OH Total 4 Months E55.9 - Vitamin D deficiency, unspecified Comprehensive [place]. Panel Fast 4 Months E11.9 - Type 2 diabetes mellitus without complications Medications: New semaglutide (Ozempic) 2 mg (0.75 mL) subcut QWEEK 3 mL 6RF 4 weeks E11.9 - Type 2 diabetes mellitus without complications metformin 500 mg PO BID 180 tabs 1RF 90 days Refilled lisinopril 20 mg PO DAILY 90 tabs 3RF 90 days I10 - Essential (primary) hypertension Discontinued metformin Discontinued Reason: Patient Completed Course 1,000 mg PO BID 30 days 60 tabs 1RF E11.9 - Type 2 diabetes mellitus without complications semaglutide (Ozempic) Discontinued Reason: Patient Completed Course 1 mg (0.75 mL) subcut QWEEK 30 days 3.75 mL 6RF E11.9 - Type 2 diabetes mellitus without complications Coding Level of Care Code Est Pt Level 4 (57152) Complex EM visit Add On G2211 Diagnoses Type 2 diabetes mellitus without complication, without long-term current use of insulin E11.9 Diabetes mellitus type: type 2 Diabetes mellitus residential insulin use: without residential use Diabetes mellitus complication status: without complication Essential hypertension I10 Chronic idiopathic constipation K59.04 Chronic GERD K21.9 Additional Codes ANAI-7 Assessment Billing - ANAI-7 Assessment Tool: ANAI-7 Assessment 36947 ([id number]) Time Spent (min) 23
== END 2024-05-02 16:09 | disposition home or self-care (01) ==
PROVIDERS: PCP Internal Medicine; Visit Provider Internal Medicine
DX: E11.9 Type 2 diabetes mellitus without complications (principal); I10 Essential (primary) hypertension; K59.04 Chronic idiopathic constipation; K21.9 Gastro-esophageal reflux disease without esophagitis
CPT/HCPCS: 83036; 99214; G2211

== ENCOUNTER 2024-05-16 15:49 | Outpatient (AMB) | payer OTHER, SELFPAY ==
[2024-05-16 15:51] VITALS: BP 120/66; PULSE 84; O2SAT 98; BMI 37.9
--- NOTE | 2024-05-16 15:51 | A.OFFVIS_ITS ---
Vital Signs 05/16/24 15:51 Height 5 ft 11 in Weight 272 lb 0.807 oz BMI 37.9 BP 120/66 Blood Pressure Location Rt brachial Position Sitting Pulse 84 Pulse Source Pulse Oximeter Pulse Oximetry (%) 98 Oxygen Delivery Method Room Air Intake Visit Reasons: s/P EGD; Dr. Lo Intake Note: Cirilo presents in office today for a scheduled s/p fuv. CC; Pt denies any complications or new concerns post op. Pt reports that he is here to discuss the findings of the procedure. Pt is unsure if he needs any refills. Advised pt to portal message if he finds he needs refills. Process Development Engineer Required: Yes Process Development Engineer Services: Process Development Engineer Present Process Development Engineer Name: [id number] Liyah Information Interpreted: non-clinical & clinical Accompanied by: Self / Same As Patient Allergies Penicillins [PENICILLINS] Allergy (Intermediate, Verified 05/16/24 16:01) Hives HPI HPI s/P EGD; Dr. Lo: Details: LAST VISIT: Chronic idiopathic constipation Abdominal pain, RUQ (right upper quadrant) Postprandial epigastric pain GERD (gastroesophageal reflux disease) Helicobacter pylori (H. pylori) Exocrine pancreatic insufficiency Plan Pancreatic insufficiency, however test could be invalid as the stool sample was to lose. Patient will repeat the test, however I will start him on Creon with meals up to 4 times a day to see if his symptoms will go away. Patient will start taking pantoprazole in the morning and will take famotidine at bedtime on as needed basis. Patient was encouraged to avoid dietary triggers and late night snacking. Staying upright for minimum 3 hours after meals discussed with patient. Patient will be sent for upper endoscopy to rule out gastritis, esophagitis, duodenitis, gastric or peptic ulcers, celiac, H pylori, Loyd's. No issues with anesthesia in the past. Patient is on Ozempic and is aware to stop it minimum 7 days before procedure. Patient is also on lisinopril knows not to take the medication day of procedure. Patient is not on any anticoagulation medication. I will see patient after the procedure, sooner on as needed basis. Patient is agreeable to this plan and verbalizes understanding of instructions. He was given the opportunity to ask questions and all questions answered. ? Thank you for allowing me to participate in his care Orders Orders Pancreatic Elastase-1 Today R10.9 Medications New wntihk-fmcrhoht-ioicvog 36,000-114,000- 180,000 unit (Creon) administer with meals and/or snacks 1 cap PO QID 120 caps 3RF K86.89 Changed Changed From famotidine (Pepcid) 20 mg PO BID 30 tabs 3RF K21.9 Changed To famotidine (Pepcid) 20 mg PO BEDTIME 30 tabs 3RF K21.9 Refilled linaclotide (Linzess) 145 mcg PO DAILY 30 caps 2RF pantoprazole take one tablet half an hour before breakfast 40 mg PO DAILY 90 days 90 tabs 3RF K21.9 Discontinued bismuth subsalicylate Discontinued Reason: Doctor's Order 2 tabs PO QID 14 days 112 tabs 0RF A04.8 UPPER ENDOSCOPY: EGD Findings:? * Esophagus:? Normal mucosa noted in the entire esophagus. The Z line was at 42 cm. Middle and lower esophagus forceps biopsies were obtained to rule out eosinophilic esophagitis. THere was a small hiatal hernia. * Stomach:? Normal mucosa was noted in the stomach. Retroflexion was performed in the cardia. Random cold forceps gastric biopsies were taken to rule out H Pylori infection. * Duodenum:? Normal mucosa was noted in the whole of the examined duodenum. Cold forceps biopsies were taken from duodenal bulb and second portion of the duodenum to rule out celiac sprue. ? EGD Impressions:? * Normal esophagus (biopsy) * Hiatal hernia * Normal stomach (biopsy) * Normal duodenum (biopsy)?? Recommendations:?? * Follow biopsy results. Our office will call or send a letter with results within 7-10 days. * If H pylori +, patient will be prescribed eradication therapy followed by test of cure. * Avoid NSAIDs. PATHOLOGY RESULTS Addendum #1 Immunostain for H. pylori is non-reactive (B) - no change is made to the diagnosis. Electronically Signed By: Jonathan Heller MD 05/02/24 3439 Diagnosis A. Duodenum, biopsy: Duodenal mucosa within normal limits. B. Stomach, random, biopsy: Antral-type and oxyntic mucosa with moderate chronic inactive inflammation. C. Esophagus, lower, biopsy: Active esophagitis (maximum eosinophil count 2 per high powered field). D. Esophagus, middle, biopsy: Squamous epithelium within normal limits; no inflammation seen. Comment: H. pylori study on part B will be addended TODAY'S VISIT Patient is here today for follow-up and to discuss upper endoscopy results. Patient denies any ill effects from anesthesia or procedure itself. Patient reports that he has been doing fairly well. Upper endoscopy and biopsy results discussed with patient. No H pylori found. Patient reports that he has been feeling fairly well with pantoprazole. Patient is taking famotidine at bedtime and reports that his symptoms are also suppressed. Patient denies any nausea or vomiting. Denies any abdominal pain or discomfort. He is taking his Creon with food and reports that his symptoms of abdominal bloating suppressed. Patient continues to be constipated. Feels like when he takes Linzess it causes too much diarrhea. Witsbits was not working for him. [facility] Medical History Neuropathy Obese Hypovitaminosis D Allergic rhinitis Hemorrhoids Abdominal pain, RUQ (right upper quadrant) Hypertriglyceridemia Essential hypertension Diabetes mellitus Surgical History No pertinent past surgical history Family History Father Diabetes Hypertension Mother Diabetes Hypertension Stroke Maternal Grandmother Cancer Family/Other FH: mental illness Substance use disorder Maternal Aunt Diabetes Hypertension Paternal Aunt Diabetes Hypertension Social History Housing: Apartment Alcohol intake: former Patient Tobacco Use Status: Former Tobacco user Tobacco use type: Cigarette e-Cigarette/Vaping Use: Never Used Second Hand Smoke Exposure: No Substance Use Type: Marijuana service: No Current occupational status: employed Current occupational exposures/hazards: No Cognitive needs: No Hearing needs: No Vision needs: Yes Review of Systems Const Denies weight gain and Denies weight loss ENT Reports no additional complaints, Denies dysphagia and Denies odynophagia Card Reports no additional complaints Resp Reports no additional complaints GI Denies abdominal pain, Denies belching, Denies melena, Denies bloating, Denies change in bowel habits, Denies dysphagia, Denies excessive flatus, Denies dyspepsia, Denies heartburn, Denies diarrhea, Denies loose stools, Denies nausea, Denies odynophagia and Denies vomiting Reports no additional complaints Musc Reports no additional complaints Neuro Reports no additional complaints Psych Reports no additional complaints Endo Reports no additional complaints Physical Exam Vital Signs: Last Vital Signs Pulse 84 05/16/24 15:51 BP 120/66 05/16/24 15:51 Pulse Ox 98 05/16/24 15:51 Oxygen Delivery Method Room Air 05/16/24 15:51 BMI result Body Mass Index 37.9 Const General: healthy appearing and no acute distress Nutritional Appearance: obese Orientation/consciousness: patient oriented x3 Resp Effort & Inspection: normal respiratory effort, able to speak in complete sentences, no tracheal deviation and symmetric chest movement Auscultation: clear to auscultation bilaterally Cardio Rate: regular rate GI Inspection: Yes normal to inspection, No distended and Yes obesity Palpation (GI): Soft to palpation, not firm, nontender and No hepatosplenomegaly present Auscultation: normal bowel sounds General: Yes no CVA tenderness Back/Spine/Pelvis Back: no CVA tenderness Skin General skin exam: elasticity normal, turgor normal and dry skin Neuro General: patient oriented x3 Psych Appearance: grossly normal Mental Status: mental status grossly normal Assessment & Plan Assessment & Plan (1) Chronic GERD: Code(s): K21.9 - Gastro-esophageal reflux disease without esophagitis Category: Medical (2) Chronic idiopathic constipation: Code(s): K59.04 - Chronic idiopathic constipation Category: Medical (3) Hypovitaminosis D: Code(s): E55.9 - Vitamin D deficiency, unspecified Category: Medical (4) Postprandial epigastric pain: Code(s): R10.13 - Epigastric pain (5) Exocrine pancreatic insufficiency: Code(s): K86.81 - Exocrine pancreatic insufficiency Plan Continue pantoprazole and famotidine. Patient will start taking Dulcolax in the evening to help her move his bowels better. Stop Linzess and senna. Avoid dietary triggers and late night snacking. Staying upright for minimum 3 hours after meals discussed with patient. Patient will continue taking Creon with meals. Low fat, low carb diet discussed with patient. Patient will follow-up in the office in 3 months, sooner on as needed basis. He is agreeable to this plan and verbalizes understanding of instructions. He was given the opportunity to ask questions and all questions answered. Thank you for allowing me to participate in his care Medications: New bisacodyl (Dulcolax (bisacodyl)) 10 mg (2 x 5 mg) PO BEDTIME 180 tabs 4RF Refilled pantoprazole take one tablet half an hour before breakfast 40 mg PO DAILY 90 tabs 3RF 90 days K21.9 - Gastro-esophageal reflux disease without esophagitis Discontinued sennosides Discontinued Reason: Duplicate 8.6 mg PO BEDTIME 90 tabs 3RF constipation K59.00 - Constipation, unspecified linaclotide Discontinued Reason: Doctor's Order 145 mcg PO DAILY 30 caps 2RF Coding Level of Care Code Est Pt Level 3 (81764) Diagnoses Chronic GERD K21.9 Chronic idiopathic constipation K59.04 Hypovitaminosis D E55.9 Postprandial epigastric pain R10.13 Exocrine pancreatic insufficiency K86.81 Time Spent (min) 30 Comment 20 minutes spent with patient and additional 10 minutes spent reviewing his records
== END 2024-05-16 16:21 | disposition home or self-care (01) ==
PROVIDERS: PCP Internal Medicine; Visit Provider Nurse Practitioner Family
DX: K21.9 Gastro-esophageal reflux disease without esophagitis (principal); K59.04 Chronic idiopathic constipation; E55.9 Vitamin D deficiency, unspecified; R10.13 Epigastric pain; K86.81 Exocrine pancreatic insufficiency
CPT/HCPCS: 99213

== ENCOUNTER 2024-05-16 15:49 | Outpatient (REF) | payer OTHER, SELFPAY ==
[2024-05-16 18:28] LABS: Cholesterol 168 mg/dL (<200); HDL Cholesterol 25 mg/dL (>40); Triglycerides 857 mg/dL (<150)
[2024-05-16 19:14] LABS: Alanine Aminotransferase 49 U/L (0-40); Albumin Level 4.2 g/dL (3.5-5.0); Alkaline Phosphatase 59 U/L (39-117); Anion Gap 14 (12-20); Aspartate Amino Transferase 34 U/L (5-37); Bilirubin Total 0.2 mg/dL (0.0-1.0); Blood Urea Nitrogen 11 mg/dL (9-16); Calcium 9.2 mg/dL (8.4-10.2); Carbon Dioxide 22 mmol/L (22-29); Chloride 105 mmol/L (96-108); Estimated Glomerular Filt Rate > 60; Glucose Fasting 162 mg/dL (60-99); Potassium 3.9 mmol/L (3.3-5.1); Sodium 137 mmol/L (135-145); Total Protein 7.3 g/dL (6.5-8.0)
[2024-05-16 19:39] LABS: Vitamin D 25-OH Total 18.7 ng/mL (>30)
== END 2024-05-16 15:50 | disposition home or self-care (01) ==
LOC: HO.LAB 15:49
PROVIDERS: PCP Internal Medicine; Visit Provider Nurse Practitioner Family
DX: K21.9 Gastro-esophageal reflux disease without esophagitis (principal); K59.04 Chronic idiopathic constipation; R10.13 Epigastric pain; K86.81 Exocrine pancreatic insufficiency; E55.9 Vitamin D deficiency, unspecified; E78.5 Hyperlipidemia, unspecified; E11.9 Type 2 diabetes mellitus without complications; Z79.899 Other long term (current) drug therapy; Z98.890 Other specified postprocedural states
CPT/HCPCS: 36415; 80053; 80061; 82306; 86003; 99212

== ENCOUNTER 2024-08-28 16:34 | Emergency (ER) | payer OTHER, SELFPAY ==
--- NOTE | 2024-08-28 17:02 | ED_ITS ---
HPI - General Adult General Chief complaint: Animal Bite Stated complaint: Needs rabies shot Time Seen by Provider: 08/28/24 19:14 Source: patient Mode of arrival: ambulatory Limitations: no limitations History of Present Illness ED Provider: FREDI HPI narrative: 34 yo male with PMH of HTN, DM here with c/o taking in stray cat that is now confirmed rabies by department of public health no issues with scratches no infection - rabies vaccine and immunoglobulin MD complaint: rabies exposure Onset (ago): week(s) (1) Relieving factors: none Exacerbating factors: none Associated symptoms: denies other symptoms Treatments prior to arrival: none Related Data Previous Rx's ?Medication ?Instructions ?Recorded blood pressure test kit-large #1 ea 09/09/20 (Advocate Blood Pressure Monitor kit) blood-glucose meter (FreeStyle #1 ea 09/09/20 [place] Lite kit) lancets 28 gauge (FreeStyle #100 ea 09/18/22 Lancets) back brace #1 ea 04/11/23 loratadine 10 mg tablet 10 mg PO DAILY #30 ea 03/25/24 blood sugar diagnostic (FreeStyle #50 ea 04/20/24 Test strips) docusate sodium 100 mg capsule 100 mg PO BID PRN constipation #90 04/20/24 caps [id number]-[id number]-tqmzjkg 1 cap PO QID #120 caps 04/25/24 36,000-114,000-180,000 unit capsule,delay rel (Creon) lisinopril 20 mg tablet 20 mg PO DAILY 90 days #90 tabs 05/02/24 semaglutide 2 mg/dose (8 mg/3 mL) 2 mg (0.75 mL) subcut QWEEK 4 05/02/24 subcutaneous pen injector (Ozempic) weeks #3 mL metformin 500 mg tablet 500 mg PO BID 90 days #180 tabs 05/13/24 bisacodyl 5 mg tablet,delayed 10 mg (2 x 5 mg) PO BEDTIME #180 05/16/24 release (Dulcolax (bisacodyl)) tabs ergocalciferol (vitamin D2) 1,250 1,250 mcg PO QWEEK 90 days #13 caps 05/16/24 mcg (50,000 unit) capsule (Vitamin D2) fenofibrate 54 mg tablet 54 mg PO DAILY 90 days #90 tabs 05/16/24 pantoprazole 40 mg tablet,delayed 40 mg PO DAILY 90 days #90 tabs 05/16/24 release famotidine 20 mg tablet (Pepcid) 20 mg PO BEDTIME #30 tabs 07/31/24 Allergies Allergy/AdvReac Type Severity Reaction Status Date / Time Penicillins [PENICILLINS] Allergy Intermediate Hives Verified 08/28/24 17:12 Review of Systems Review of Systems: Constitutional : No Fever, No Chills, Cardiovascular : No Chest Pain, No SOB Respiratory : No Dyspnea Gastrointestinal : No abdominal pain Musculoskeletal : No Joint Swelling Skin : No rash, no skin laceration Neuro : No Weakness, No Numbness All other systems reviewed and are negative [facility] Past Medical History Attestation statement: The following information was validated with the patient. Source: old records reviewed Medical History Neuropathy Obese Hypovitaminosis D Allergic rhinitis Hemorrhoids Abdominal pain, RUQ (right upper quadrant) Hypertriglyceridemia Essential hypertension Diabetes mellitus Surgical History No pertinent past surgical history Family History Family History Father Diabetes Hypertension Mother Diabetes Hypertension Stroke Maternal Grandmother Cancer Family/Other FH: mental illness Substance use disorder Maternal Aunt Diabetes Hypertension Paternal Aunt Diabetes Hypertension Social History Social History Housing: Apartment Alcohol intake: former Patient Tobacco Use Status: Former Tobacco user Tobacco use type: Cigarette e-Cigarette/Vaping Use: Never Used Second Hand Smoke Exposure: No Substance Use Type: Marijuana Advance Directives: No Advance Directives Information Provided: No Do you have a plan to hurt others: No Plan service: No Current occupational status: employed Current occupational exposures/hazards: No Cognitive needs: No Hearing needs: No Vision needs: Yes Physical Exam ED Vital Signs: Vital Signs - 24 hr 08/28/24 17:11 Temperature 98.0 F Pulse Rate 107 H Respiratory Rate 18 Blood Pressure 159/94 H Pulse Oximetry 98 Oxygen Delivery Method Room Air BMI result Body Mass Index 36.7 Appearance: Alert. Oriented X3. No acute distress. Eyes: Pupils equal, round and reactive to light. ENT: Pharynx normal. Neck: Normal inspection. Neck supple. CVS: Normal heart rate and rhythm. Pulses normal. Respiratory: No respiratory distress. Breath sounds normal. Abdomen: Soft and non-tender. Skin: Skin warm and dry. Normal skin color. Normal skin turgor. Extremities: No lower extremity edema. Neuro: Oriented X 3. No motor deficit. No sensory deficit. Course Course Course Narrative: This is a rapid medical exam performed by Caryl De Luna NP: Additional HPI, ROS, PE not included below will be deferred to primary provider. Patient is a 34-year-old Prydeinig speaking male presenting with family who reports they had rescued a stray cat on 08/16, scratched family members while there. Family ended up giving the cat to a family friend who took the cat to the vet, which ultimately tested positive for rabies. Mother received a call from the [facility] stating that the whole family needs rabies vaccine. States he is UTD on Tdap. Medical Decision Making Medical Decision Making [facility] Narrative: 34 yo male with HTN and DM here with c/o stray cat that scratched them though no signs of infection needs rabies vaccine and immunoglobulin following positive rabies test Differential Diagnosis Differential Diagnoses: The differential diagnosis associated with the presentation includes rabies exposure Independent Historian Clinical information obtained from an independent historian. History obtained from or confirmed by: Spouse External Record Review External record reviewed: Outpatient record Discharge Plan Discharge Clinical Impression: Rabies exposure Additional Instructions: return for rash, swelling, difficulty breathing our infusion center will call and set up for next shots - if you do not hear by AM please call by 9am. Prescriptions: No Action (DME) lancets [FreeStyle Lancets] 28 gauge misc See Rx Instructions .ROUTE .MEDSUPPLY Qty: 100 11RF Rx Instructions: Use 1 lancet once a day as needed loratadine 10 mg tablet 10 mg PO DAILY Qty: 30 11RF docusate sodium 100 mg capsule 100 mg PO BID PRN (Reason: constipation) Qty: 90 1RF (DME) FreeStyle Test Strip See Rx Instructions .ROUTE .MEDSUPPLY Qty: 50 1RF Rx Instructions: Use 1 test strip once a day Creon 36,000-114,000- 180,000 unit capsule,delayed release(DR/EC) 1 cap PO QID Qty: 120 3RF Rx Instructions: administer with meals and/or snacks metformin 500 mg tablet 500 mg PO BID 90 Days Qty: 180 0RF ergocalciferol (vitamin D2) [Vitamin D2] 1,250 mcg (50,000 unit) capsule 1,250 mcg PO QWEEK 90 Days Qty: 13 1RF fenofibrate 54 mg tablet 54 mg PO DAILY 90 Days Qty: 90 1RF famotidine [Pepcid] 20 mg tablet 20 mg PO BEDTIME Qty: 30 1RF (DME) blood-glucose meter [FreeStyle [place] Lite] Kit See Rx Instructions .ROUTE .MEDSUPPLY Qty: 1 0RF Rx Instructions: As directed (DME) blood pressure test kit-large [Advocate Blood Pressure Monitr] Kit See Rx Instructions .ROUTE .MEDSUPPLY Qty: 1 0RF Rx Instructions: As directed (DME) back brace Misc See Rx Instructions .Route Qty: 1 0RF Rx Instructions: As directed lisinopril 20 mg tablet 20 mg PO DAILY 90 Days Qty: 90 3RF Ozempic 2 mg/dose (8 mg/3 mL) pen injector 2 mg subcut QWEEK 28 Days Qty: 3 6RF pantoprazole 40 mg tablet,delayed release (DR/EC) 40 mg PO DAILY 90 Days Qty: 90 3RF Rx Instructions: take one tablet half an hour before breakfast bisacodyl [Dulcolax (bisacodyl)] 5 mg tablet,delayed release (DR/EC) 10 mg PO BEDTIME Qty: 180 4RF Print Language: Prydeinig
[2024-08-28 17:11] VITALS: BP 159/94; PULSE 107; RESP 18; TEMP 36.7; O2SAT 98; BMI 36.7
[2024-08-28] MEDS: Rabies Vaccine (PCEC)/PF 1 ML VIAL IM (20:31)
[2024-08-28] MEDS: Rabies Immune Globulin/PF 300 UNIT/ML VIAL 588 UNIT IM (20:41)
[2024-08-28] MEDS: Rabies Immune Globulin/PF 900 UNIT/3 ML VIAL 1800 UNIT IM (20:41)
[2024-08-28 21:01] VITALS: BP 159/94; PULSE 107; RESP 18; TEMP 36.7; O2SAT 98
== END 2024-08-28 21:02 | disposition home or self-care (01) ==
PROVIDERS: Emergency Provider Emergency Medicine; PCP Internal Medicine
DX: T14.8XXA Other injury of unspecified body region, initial encounter (principal); W55.03XA Scratched by cat, initial encounter; Y93.9 Activity, unspecified; Y92.019 Unspecified place in single-family (private) house as the place of occurrence of the external cause; Y99.9 Unspecified external cause status; Z20.3 Contact with and (suspected) exposure to rabies; Z23 Encounter for immunization
CPT/HCPCS: 90375; 90471; 90675; 96372; 99282; 99284

== ENCOUNTER 2024-09-11 17:05 | Outpatient (AMB) | payer OTHER, SELFPAY ==
[2024-09-11 17:28] VITALS: BP 110/72; BMI 36.5
--- NOTE | 2024-09-11 17:28 | A.OFFPC_ITS ---
Vital Signs 09/11/24 17:28 Height 5 ft 11 in Weight 262 lb BMI 36.5 BP 110/72 Blood Pressure Location Lt brachial Position Sitting Intake Visit Reasons: Annual Exam Intake Note: Patient here for an Annual physical exam Rubber Engraver Required: Yes Rubber Engraver Language: Mobile Web Application Developer Name: Latanya Gonzales MD Information Interpreted: non-clinical & clinical Accompanied by: Self / Same As Patient Allergies Penicillins [PENICILLINS] Allergy (Intermediate, Verified 09/11/24 17:47) Hives Medication List - Last Reconciled 09/11/24 by Latanya Gonzales MD back brace As directed bisacodyl (Dulcolax (bisacodyl)) 10 mg (2 x 5 mg) PO BEDTIME blood pressure test kit-large (Advocate Blood Pressure Monitor kit) As directed blood sugar diagnostic (FreeStyle Test strips) Use 1 test strip once a day blood-glucose meter (FreeStyle [place] Lite kit) As directed docusate sodium 100 mg PO BID PRN ergocalciferol (vitamin D2) (Vitamin D2) 1,250 mcg PO QWEEK 90 days famotidine (Pepcid) 20 mg PO BEDTIME fenofibrate 54 mg PO DAILY 90 days lancets (FreeStyle Lancets) Use 1 lancet once a day as needed fzolgm-wkhtrnwf-hwbzksy 36,000-114,000- 180,000 unit (Creon) 1 cap PO QID lisinopril 20 mg PO DAILY 90 days loratadine 10 mg PO DAILY metformin 500 mg PO BID 90 days pantoprazole 40 mg PO DAILY 90 days semaglutide (Ozempic) 2 mg (0.75 mL) subcut QWEEK 4 weeks Tobacco use date assessed: 09/11/24 Dental Screening Dental Screen Date: 09/11/24 Did you have a dental visit in the last 12 months?: No Did you have a dental problem in the last 6 months where you did not have access to dental care?: No Was dental information given to patient?: Patient has dentist HPI HPI Comments History of Present Illness Details The patient is a 34-year-old male presenting for his physical exam. He has diabetes mellitus well controlled with medication. Has mixed hyperlipidemia and lipid panel will be order due to LDL goal less than 70. He mentioned a history of elevated triglycerides without specific mention of onset or associated symptoms. Previous laboratory evaluations noted these findings, and lifestyle modification considerations are implied due to the need for follow-up testing. There were no specific interventions mentioned prior to this visit. No new symptoms or exacerbations were reported, and the patient has declined being depressed or anxious, indicating stable mental health. - Plans to repeat triglyceride and A1c l aboratory testing in four months. - Concluded recent vaccination series wi th the last administered today. [facility] Medical History Neuropathy Obese Hypovitaminosis D Allergic rhinitis Hemorrhoids Abdominal pain, RUQ (right upper quadrant) Hypertriglyceridemia Essential hypertension Diabetes mellitus Surgical History No pertinent past surgical history Family History Father Diabetes Hypertension Mother Diabetes Hypertension Stroke Maternal Grandmother Cancer Family/Other FH: mental illness Substance use disorder Maternal Aunt Diabetes Hypertension Paternal Aunt Diabetes Hypertension Social History Housing: Apartment Alcohol intake: former Patient Tobacco Use Status: Former Tobacco user Tobacco use type: Cigarette e-Cigarette/Vaping Use: Never Used Second Hand Smoke Exposure: No Substance Use Type: Marijuana service: No Current occupational status: employed Current occupational exposures/hazards: No Cognitive needs: No Hearing needs: No Vision needs: Yes Questionnaire PHQ-9 Over the last 2 weeks, how often have you been bothered by any of the following problems? 1. Little interest or pleasure in doing things: not at all 2. Feeling down, depressed, or hopeless: not at all 3. Trouble falling or staying asleep, or sleeping too much: not at all 4. Feeling tired or having little energy: not at all 5. Poor appetite or overeating: not at all 6. Feeling bad about yourself - or that you are a failure or have let yourself or your family down: not at all 7. Trouble concentrating on things, such as reading the newspaper or watching television: not at all 8. Moving or speaking so slowly that other people could have noticed. Or the opposite - being so fidgety or restless that you have been moving around a lot more than usual: not at all 9. Thoughts that you would be better off or of hurting yourself in some way: not at all Total score: 0 Depression Screening Interpretation: Negative Depression Screening Done: Yes 10419 - PHQ-9 Billing: Yes Source: Developed by Drs. Julio Williamson, Erendira Fermin, Ganga Crow and colleagues, with an educational lv from [employer]. Thrive Questionnaire Date Thrive assessed: 09/11/24 I am a: Patient What is your living situation today?: I choose not to answer this question Within the past 12 months, did the food you bought not last and you didn't have the money to get more?: I choose not to answer this question Within the past 12 months, did you worry whether your food would run out before you got money to buy more?: I choose not to answer this question Do you have trouble paying for medicines?: No Do you have trouble getting transportation to medical appointments?: No Do you have trouble paying your heating and electricity bill?: No Do you have trouble taking care of your child, family member or friend?: No Do you have trouble with day-to-day activities such as bathing, preparing meals, shopping, managing finances, etc.?: No Are you currently unemployed and looking for a job?: No Are you interested in more education?: No Please select the resources that you would like help with: None Currently or been in a relationship where the following occur: I choose not to answer THRIVE Score: 0 AUDIT C Alcohol Use Questionnaire (AUDIT-C) 1. How often do you have a drink containing alcohol?: Never Total Score: 0 Score Reviewed/Action Taken: No ANAI-7 AMB Questionnaire ANAI-7 Date ANAI - 7 assessed: 09/11/24 Feeling nervous, anxious, or on edge: 0 = Not at all Not being able to stop or control worryin = Not at all Worrying too much about different things: 0 = Not at all Trouble relaxin = Not at all Being so restless that it is hard to sit still: 0 = Not at all Becoming easily annoyed or irritable: 0 = Not at all Feeling afraid as if something awful might happen: 0 = Not at all Total ANAI-7 score (0-4 normal; 5-9 mild; 10-14 moderate; 15-21 severe): 0 Source: Developed by Drs. Julio Williamson, Erendira Fermin, Ganga Crow and colleagues, with an educational lv from [employer]. ANAI-7 Assessment Billing ANAI-7 Assessment Tool: ANAI-7 Assessment 16616 Review of Systems Const All systems reviewed & are unremarkable except as noted in HPI and below Card Denies chest pain at rest, Denies chest pain with activity, Denies edema, Denies irregular heart rhythm, Denies claudication, Denies dyspnea, Denies dyspnea on exertion, Denies orthopnea, Denies paroxysmal nocturnal dyspnea and Denies slow heart rate Resp Denies cough, Denies dyspnea and Denies dyspnea on exertion Musc Denies abnormal gait, Denies atrophy, Denies deformity and Denies limited range of motion Neuro Denies abnormal gait, Denies behavioral changes, Denies confusion and Denies lack of coordination Psych Denies behavioral changes and Denies confusion Physical exam (Primary Care) Vital Signs: Last Vital Signs BP 110/72 09/11/24 17:28 BMI result Body Mass Index 36.5 BMI Assessment/Plan discussion: High BMI High, discussed plan: lifestyle, weight reduction, dietary and physical activity Tobacco/Smoking Status: Tobacco use Status Tobacco use date assessed 09/11/24 09/11/24 17:31 Patient Tobacco Use Status Former Tobacco user 09/11/24 17:28 Tobacco use type Cigarette 09/11/24 17:28 e-Cigarette/Vaping Use Never Used 09/11/24 17:28 PHQ-9: PHQ-9 Score PHQ-9: Total score 0 09/11/24 17:49 Depression Screening Interpretation: Negative Thrive Assessment: Date of Thrive Assessment Date Thrive assessed 09/11/24 09/11/24 17:31 Currently or been in a relationship where the following occur: I choose not to answer Const General: No confusion Orientation/consciousness: patient oriented x3 and No confusion HENMT Head: Yes normal to inspection, Yes normocephalic and Yes atraumatic Ears: external ears normal Eyes General: appearance normal, both eyes and all related structures Eyelids: Yes eyelids normal Conjunctivae: conjunctivae normal Neck Neck: Yes normal visual inspection and Yes supple Resp Effort & Inspection: normal respiratory effort Auscultation: clear to auscultation bilaterally Cardio Jugular venous distension: no JVD Rate: regular rate Rhythm: regular rhythm Heart sounds: S1 normal heart sound present and S2 normal heart sound present GI Inspection: Yes normal to inspection Palpation (GI): Soft to palpation and nontender Auscultation: normal bowel sounds Skin General skin exam: no rashes or lesions noted Neuro General: patient oriented x3, no focal motor deficits and No confusion Extrem General: Yes full ROM Psych Appearance: grossly normal Office Procedures Flu Questionnaire Does the patient have a severe egg allergy?: No Results AMB Hemoglobin A1c AMB Hemoglobin A1c 6.9 % Last Edit by DENYS Mccartney on 09/11/24 17:3 2 Immunizations Fluarix Triv [id number] (PF) 45 mcg (15 mcg x 3)/0.5 mL IM syringe Performing Provider: Latanya Gonzales MD Performing [facility] [place] [facility] Documented (not given) by: DENYS Mccartney on 09/11/24 17:31 Reason Not Given: Patient Refused Results Reviewed Results Reviewed: Laboratory Last Values Hgb A1c (Clinic) 6.9 % (4.0-6.0) H 09/11/24 17:22 Coding Level of Care Code Est Pt Prev Care 18-39y(08429) Diagnoses Physical exam Z00.00 Type 2 diabetes mellitus without complication, without long-term current use of insulin E11.9 Diabetes mellitus type: type 2 Diabetes mellitus skilled nursing insulin use: without superintendent marine oil terminal use Diabetes mellitus complication status: without complication Additional Codes ANAI-7 Assessment Billing - ANAI-7 Assessment Tool: ANAI-7 Assessment 82700 ([id number]) PHQ-9 - 75346 - PHQ-9 Billing: Yes ([id number]) Time Spent (min) 32 Assessment & Plan Assessment & Plan (1) Physical exam: Code(s): Z00.00 - Encounter for general adult medical examination without abnormal findings Category: Medical (2) Diabetes mellitus: Code(s): E11.9 - Type 2 diabetes mellitus without complications Category: Medical Qualifiers: Diabetes mellitus type: type 2 Diabetes mellitus skilled nursing insulin use: without skilled nursing use Diabetes mellitus complication status: without complication Qualified Code(s): E11.9 - Type 2 diabetes mellitus without complications Plan - Repeat laboratory testing for triglycerides and A1c in four months to monitor. - Monitor diet and exercise as general lifestyle guidance. - Discuss potential lifestyle modifications to address abnormal laboratory values. Patient was informed and verbally consented to the use of an ambient scribe for clinic note documentation during this visit. Orders: Orders Lipid Panel 4 Months E78.5 - Hyperlipidemia, unspecified Microalbumin, Random (w Creat) 4 Months R80.9 - Proteinuria, unspecified AMB Hemoglobin A1c Today E11.9 - Type 2 diabetes mellitus without complications Influenza [id number] Immunization Today Z23 - Encounter for immunization Vitamin D 25-OH Total 4 Months E55.9 - Vitamin D deficiency, unspecified Comprehensive [place]. Panel Fast 4 Months Z00.00 - Encounter for general adult medical examination without abnormal findings
== END 2024-09-11 17:58 | disposition home or self-care (01) ==
PROVIDERS: PCP Internal Medicine; Visit Provider Internal Medicine
DX: Z00.00 Encounter for general adult medical examination without abnormal findings (principal); E11.9 Type 2 diabetes mellitus without complications; Z23 Encounter for immunization

== ENCOUNTER → 2024-09-11 17:05 | Outpatient (BNVA) | payer OTHER, SELFPAY | PROVIDERS: PCP Internal Medicine; Visit Provider Internal Medicine | DX: Z00.00 Encounter for general adult medical examination without abnormal findings (principal); E11.9 Type 2 diabetes mellitus without complications; E78.2 Mixed hyperlipidemia; R80.9 Proteinuria, unspecified; E55.9 Vitamin D deficiency, unspecified; E78.5 Hyperlipidemia, unspecified; Z28.21 Immunization not carried out because of patient refusal | CPT/HCPCS: 83036; 90471; 96127; 99395 ==

== ENCOUNTER 2024-09-25 15:36 | Outpatient (AMB) | payer OTHER, SELFPAY ==
--- NOTE | 2024-09-25 15:41 | A.OFFVIS_ITS ---
Vital Signs 09/25/24 15:42 Height 5 ft 11 in Weight 262 lb 12.656 oz BMI 36.6 BP 108/62 Blood Pressure Location Rt brachial Position Sitting Pulse 86 Pulse Source Pulse Oximeter Pulse Oximetry (%) 97 Oxygen Delivery Method Room Air Intake Visit Reasons: follow up Intake Note: ESTABLISHED PATIENT for Chronic GERD FUV Chief Complaint; Pt reports sx including bloating, gas, abd discomfort (RUQ) and persistent reflux despite taking PPI as instructed. Pt states that this occurs regardless of what he eats. No additional concerns reported. File System Installer Required: Yes File System Installer Services: File System Installer Present File System Installer Name: Brenden [id number] Information Interpreted: clinical only Accompanied by: Self / Same As Patient Allergies Penicillins [PENICILLINS] Allergy (Intermediate, Verified 09/25/24 15:43) Hives HPI HPI follow up: Details: LAST VISIT: Chronic GERD Chronic idiopathic constipation Hypovitaminosis D Postprandial epigastric pain Exocrine pancreatic insufficiency Plan Continue pantoprazole and famotidine. Patient will start taking Dulcolax in the evening to help her move his bowels better. Stop Linzess and senna. Avoid dietary triggers and late night snacking. Staying upright for minimum 3 hours after meals discussed with patient. Patient will continue taking Creon with meals. Low fat, low carb diet discussed with patient. Patient will follow-up in the office in 3 months, sooner on as needed basis. He is agreeable to this plan and verbalizes understanding of instructions. He was given the opportunity to ask questions and all questions answered. ? Thank you for allowing me to participate in his care Medications New bisacodyl (Dulcolax (bisacodyl)) 10 mg (2 x 5 mg) PO BEDTIME 180 tabs 4RF Refilled pantoprazole take one tablet half an hour before breakfast 40 mg PO DAILY 90 tabs 3RF 90 days K21.9 Discontinued sennosides Discontinued Reason: Duplicate 8.6 mg PO BEDTIME 90 tabs 3RF constipation K59.00 linaclotide Discontinued Reason: Doctor's Order 145 mcg PO DAILY 30 caps 2RF TODAY'S VISIT: Patient is here today for follow-up. Patient reports that he continues to have postprandial abdominal pain and bloating regardless what he eats. Recently patient reports that his dose of Ozempic was increased. Patient is currently on pantoprazole and symptoms of acid reflux are suppressed, however he does report epigastric pain postprandially. Patient denies any nausea or vomiting. Denies any diarrhea, mucus in his stools, reports constipation. Sometimes no BM for 4-5 days. No dietary changes. Mostly eating Sudanese food with rice and beans. Admits to drink feeling small amount of water. [facility] Medical History Neuropathy Obese Hypovitaminosis D Allergic rhinitis Hemorrhoids Abdominal pain, RUQ (right upper quadrant) Hypertriglyceridemia Essential hypertension Diabetes mellitus Surgical History No pertinent past surgical history Family History Father Diabetes Hypertension Mother Diabetes Hypertension Stroke Maternal Grandmother Cancer Family/Other FH: mental illness Substance use disorder Maternal Aunt Diabetes Hypertension Paternal Aunt Diabetes Hypertension Social History Housing: Apartment Alcohol intake: former Patient Tobacco Use Status: Former Tobacco user Tobacco use type: Cigarette e-Cigarette/Vaping Use: Never Used Second Hand Smoke Exposure: No Substance Use Type: Marijuana service: No Current occupational status: employed Current occupational exposures/hazards: No Cognitive needs: No Hearing needs: No Vision needs: Yes Review of Systems Const Denies weight gain and Denies weight loss ENT Reports no additional complaints, Denies dysphagia and Denies odynophagia Card Reports no additional complaints Resp Reports no additional complaints GI Reports abdominal pain (Cramping), Denies belching, Denies melena, Reports bloating, Denies change in bowel habits, Reports constipation, Denies dysphagia, Denies excessive flatus, Denies dyspepsia, Reports heartburn, Denies diarrhea, Reports loose stools, Denies nausea, Denies odynophagia and Denies vomiting Reports no additional complaints Musc Reports no additional complaints Neuro Reports no additional complaints Psych Reports no additional complaints Endo Reports no additional complaints Physical Exam Vital Signs: Last Vital Signs Pulse 86 09/25/24 15:42 BP 108/62 09/25/24 15:42 Pulse Ox 97 09/25/24 15:42 Oxygen Delivery Method Room Air 09/25/24 15:42 BMI result Body Mass Index 36.6 Const General: healthy appearing and no acute distress Nutritional Appearance: obese Orientation/consciousness: patient oriented x3 Resp Effort & Inspection: normal respiratory effort, able to speak in complete sentences, no tracheal deviation and symmetric chest movement Auscultation: clear to auscultation bilaterally Cardio Rate: regular rate GI Inspection: Yes normal to inspection, No distended and Yes obesity Palpation (GI): Soft to palpation, not firm, nontender and No hepatosplenomegaly present Auscultation: normal bowel sounds General: Yes no CVA tenderness Back/Spine/Pelvis Back: no CVA tenderness Skin General skin exam: elasticity normal, turgor normal and dry skin Neuro General: patient oriented x3 Psych Appearance: grossly normal Mental Status: mental status grossly normal Assessment & Plan Assessment & Plan (1) Chronic GERD: Code(s): K21.9 - Gastro-esophageal reflux disease without esophagitis Category: Medical (2) Chronic idiopathic constipation: Code(s): K59.04 - Chronic idiopathic constipation Category: Medical (3) Hypovitaminosis D: Code(s): E55.9 - Vitamin D deficiency, unspecified Category: Medical (4) Postprandial epigastric pain: Code(s): R10.13 - Epigastric pain (5) Exocrine pancreatic insufficiency: Code(s): K86.81 - Exocrine pancreatic insufficiency (6) Postprandial abdominal bloating: Code(s): R14.0 - Abdominal distension (gaseous) Plan Continue pantoprazole. Avoid dietary triggers and late night snacking. Patient was instructed to take Dulcolax daily as he does not move his bowels often. Increase fluid intake and activity to promote better bowel motility. Most likely mild gastroparesis and constipation as well as epigastric pain related to Ozempic. Dose was increased in April. Patient notice symptoms worsening. Recommend switching possibly to Mounjaro. Patient will return in 3 months. He is agreeable to this plan and verbalizes understanding of instructions. He was given the opportunity to ask questions and all questions answered. Thank you for allowing me to participate in his care Orders: Orders Liver Panel Today R74.01 - Elevation of levels of liver transaminase levels Lipid Panel Today E78.1 - Pure hyperglyceridemia Lipid Panel 4 Months E78.1 - Pure hyperglyceridemia Lipase Today R10.9 - Unspecified abdominal pain Coding Level of Care Code Est Pt Level 4 (11928) Complex EM visit Add On G2211 Diagnoses Chronic GERD K21.9 Chronic idiopathic constipation K59.04 Hypovitaminosis D E55.9 Postprandial epigastric pain R10.13 Exocrine pancreatic insufficiency K86.81 Postprandial abdominal bloating R14.0 Time Spent (min) 40 Comment 25 minutes spent with patient and additional 15 minutes spent reviewing his records
[2024-09-25 15:42] VITALS: BP 108/62; PULSE 86; O2SAT 97; BMI 36.6
--- OUTSIDE RECORDS SUMMARY | 2024-09-25 16:28 | XMS_ITS | Encounter Summary ---
Author Organization [employer] [facility] Address [address] [place] [address] Care Team Providers Care Hotel And Dining Room Cashier Name Role Phone Unavailable Primary Care Provider Unavailabl e Encounter Details Date Type Department Care Team (Latest Contact Info) Description 11/25/2021 Abstract [facility] CONVERSIONS Dental, Provider, DDS Social History Tobacco Use Types Packs/Day Years Used Date Smoking Tobacco: Never Assessed Sex and Gender Information Value Date Recorded Sex Assigned at Male 06/28/2022 10:20 AM EDT Legal Sex Male 10:20 AM EDT Gender Identity Male 06/28/2022 10:20 AM EDT Sexual Orientation Straight 06/28/2022 10 :20 AM EDT documented as of this encounter Plan of Treatment Not on file documented as of this encounter Visit Diagnoses Not on filedocumented in this encounter
--- OUTSIDE RECORDS SUMMARY | 2024-09-25 16:28 | XMS_ITS | Clinical Summary ---
Author Organization [facility] Address [address] [place] [address] Care Team Providers Care Animal Chiropractor Name Role Phone Unavailable Primary Care Provider Unavailabl e Allergies Active Allergy Reactions Criticality Noted Date Comments Penicillins 09/03/2022 Medications metFORMIN (Glucophage) 1000 MG tablet Take 1,000 mg by mouth 2 times daily. 08/18/2022 Active lisinopril 20 MG tablet Take 20 mg by mouth in the morning. 08/18/2022 Active Social History Tobacco Use Types Packs/Day Years Used Date Smoking Tobacco: Never Tobacco Cessation:Counseling Given: Not Answered Sex and Gender Information Value Date Recorded Sex Assigned at Male 06/28/2022 10:20 AM EDT Legal Sex Male 10:20 AM EDT Gender Identity Male 06/28/2022 10:20 AM EDT Sexual Orientation Straight 06/28/2022 10 :20 AM EDT Last Filed Vital Signs Vital Sign Reading Time Taken Comments Blood Pressure 129/81 08/11/2022 10:50 AM EST Pulse 70 08/11/2022 10:50 AM EST Temperature - - Respiratory Rate - - Oxygen Saturation - - Inhaled Oxygen Concentration - - Weight - - Height - - Body Mass Index - - Plan of Treatment Health Maintenance Due Date Last Done Comments Dental Oral Exam 1989 Dental Prophylaxis 1989 Dental X-Ray: Bitewings 1989 Dental X-Ray: Full Mouth 1989 Depression Screening 1989 HIV Screening 1989 Lipid Panel 1989 SDOH Screening 1989 IPV Vaccines (2 of 3 - 4-dose series) 08/10/1993 07/13/1993 Alcohol/Substance Use Screening 2001 Tobacco Screening 2001 Family Planning (PISQ) 2004 Hepatitis C Screening 2007 DTaP/Tdap/Td Vaccines (2 - Td or Tdap) 10/10/2022 10/10/2012 COVID-19 Vaccine (3 - season) 2024 06/22/2021, 06/01/2021 Influenza Vaccine (#1) 2024 2, 07/13/2021, 05/16/2020, Additional history exists Zoster Vaccines (1 of 2) 2039 RSV Patients and Patients Aged 60 years or older (1 - 1-dose 75+ series) 2064 Hepatitis B Vaccines Completed 05/14/2002, 02/28/2001, 01/11/2001 Pneumococcal Vaccine: Pediatrics (0 to 5 Years) and At-Risk Patients (6 to 64 Years) Aged Out 07/28/2017 No longer eligible based on patient's age to complete this topic HIB Vaccines Aged Out No longer eligi ble based on patient's age to complete this topic HPV Vaccines Aged Out No longer eligi ble based on patient's age to complete this topic Hepatitis A Vaccines Aged Out No long er eligible based on patient's age to complete this topic Meningococcal Vaccine Aged Out No candice booker eligible based on patient's age to complete this topic RSV under 20 months Aged Out No longe r eligible based on patient's age to complete this topic Rotavirus Vaccines Aged Out No longer eligible based on patient's age to complete this topic Insurance [place]
--- OUTSIDE RECORDS SUMMARY | 2024-09-25 16:28 | XMS_ITS | Encounter Summary ---
Author Organization [employer] Address [address] [place] [address] Care Team Providers Care Levers Lace Machine Operator Name Role Phone Unavailable Primary Care Provider Unavailabl e Encounter Details Date Type Department Care Team (Late st Contact Info) Description 08/10/2022 Abstract [facility] ADULT DENTAL [address] [place] [address] Dental, Provider, DDS Social History Tobacco Use Types Packs/Day Years Used Date Smoking Tobacco: Never Assessed Sex and Gender Information Value Date Recorded Sex Assigned at Male 06/28/2022 10:20 AM EDT Legal Sex Male 10:20 AM EDT Gender Identity Male 06/28/2022 10:20 AM EDT Sexual Orientation Straight 06/28/2022 10 :20 AM EDT COVID-19 Exposure Response Date Recorded In the last 10 days, have yo u been in contact with someone who was confirmed or suspected to have Coronavirus/COVID-19? No / Unsure 08/11/2022 8:50 AM EST documented as of this encounter Plan of Treatment Scheduled Orders Name Type Priority Associated Diagnoses Orde r Schedule 1 O 1 O RESIN-BASED COMPOSITE - 1 SURFACE, POSTERIOR Dental Routine [address] arting 09/03/2022 documented as of this encounter Procedures Procedure Name Priority Date/Time Associated Diagnosis Comments 32 O COMPOSITE FILLING Routine 08/10/2022 12:00 AM EST 29 O COMPOSITE FILLING Routine 08/10/2022 12:00 AM EST 19 O COMPOSITE FILLING Routine 08/10/2022 12:00 AM EST 17 O COMPOSITE FILLING Routine 08/10/2022 12:00 AM EST 15 O COMPOSITE FILLING Routine 08/10/2022 12:00 AM EST 13 MO COMPOSITE FILLING Routine 08/10/2022 12:00 AM EST 9 MIF COMPOSITE FILLING Routine 08/10/2022 12:00 AM EST 4 MOD COMPOSITE FILLING Routine 08/10/2022 12:00 AM EST 2 O COMPOSITE FILLING Routine 08/10/2022 12:00 AM EST 12 ROOT CANAL Routine 08/10/2022 12:00 AM EST documented in this encounter Visit Diagnoses Not on filedocumented in this encounter
== END 2024-09-25 16:44 | disposition home or self-care (01) ==
PROVIDERS: PCP Internal Medicine; Visit Provider Nurse Practitioner Family
DX: K21.9 Gastro-esophageal reflux disease without esophagitis (principal); K59.04 Chronic idiopathic constipation; E55.9 Vitamin D deficiency, unspecified; R10.13 Epigastric pain; K86.81 Exocrine pancreatic insufficiency; R14.0 Abdominal distension (gaseous)
CPT/HCPCS: 99214; G2211

== ENCOUNTER → 2024-09-25 15:36 | Outpatient (BNVA) | payer OTHER, SELFPAY | PROVIDERS: PCP Internal Medicine; Visit Provider Nurse Practitioner Family | DX: K21.9 Gastro-esophageal reflux disease without esophagitis (principal); K59.04 Chronic idiopathic constipation; K86.81 Exocrine pancreatic insufficiency; E55.9 Vitamin D deficiency, unspecified; R10.13 Epigastric pain; R14.0 Abdominal distension (gaseous) | CPT/HCPCS: 99212 ==

== ENCOUNTER 2024-10-03 10:39 | Outpatient (REF) | payer OTHER, SELFPAY ==
[2024-10-03 12:11] LABS: Influenza A PCR POSITIVE (Negative); Influenza B PCR NEGATIVE (Negative); Resp Syncy Virus RNA Qual PCR NEGATIVE (Negative); SARS COV2 PCR INHOUSE NEGATIVE (Negative)
== END 2024-10-03 10:40 | disposition home or self-care (01) ==
LOC: HO.LAB 10:39
PROVIDERS: PCP Internal Medicine; Visit Provider Internal Medicine
DX: R09.89 Other specified symptoms and signs involving the circulatory and respiratory systems (principal); Z13.83 Encounter for screening for respiratory disorder NEC
CPT/HCPCS: 0241U

== ENCOUNTER 2024-10-03 10:39 | Outpatient (AMB) | payer OTHER, SELFPAY ==
--- NOTE | 2024-10-03 10:43 | A.OFFPC_ITS ---
Intake Visit Reasons: medication follow up Intake Note: medication follow up, flu Import Dispatcher Required: No Accompanied by: Self / Same As Patient Allergies Penicillins [PENICILLINS] Allergy (Intermediate, Verified 10/03/24 10:44) Hives Tobacco use date assessed: 09/11/24 Dental Screening Dental Screen Date: 09/11/24 HPI HPI Comments History of Present Illness Details This is a 34-year-old male with diabetes mellitus type 2, hypertension, hypertriglyceridemia and chronic GERD that has tele health visit by video complaining of nasal congestion, non quantified fever, headaches, sore throat, dry cough and chills that started about 3 days ago. He has sick contacts at home in with his children were positive for influenza. I will test him for COVID, flu and RSV. I will start him on Tamiflu. Blood pressure has been stable at home. On fibrates for his elevated triglycerides. GERD stable with PPIs. Last A1c was within goal. [facility] Medical History (Updated 10/03/24 @ 19:07 by Latanya Gonzales MD) High triglycerides Neuropathy Obese Hypovitaminosis D Allergic rhinitis Hemorrhoids Abdominal pain, RUQ (right upper quadrant) Hypertriglyceridemia Essential hypertension Diabetes mellitus Surgical History No pertinent past surgical history Family History Father Diabetes Hypertension Mother Diabetes Hypertension Stroke Maternal Grandmother Cancer Family/Other FH: mental illness Substance use disorder Maternal Aunt Diabetes Hypertension Paternal Aunt Diabetes Hypertension Social History Housing: Apartment Alcohol intake: former Patient Tobacco Use Status: Former Tobacco user Tobacco use type: Cigarette e-Cigarette/Vaping Use: Never Used Second Hand Smoke Exposure: No Substance Use Type: Marijuana service: No Current occupational status: employed Current occupational exposures/hazards: No Cognitive needs: No Hearing needs: No Vision needs: Yes Questionnaire Thrive Questionnaire Date Thrive assessed: 09/11/24 ANAI-7 AMB Questionnaire ANAI-7 Date ANAI - 7 assessed: 09/11/24 Source: Developed by Drs. Julio Williamson, Erendira Fermin, Ganga Crow and colleagues, with an educational lv from [employer]. Review of Systems Const All systems reviewed & are unremarkable except as noted in HPI and below Reports body aches, Reports chills, Reports fatigue, Reports fever(s), Reports headache(s) and Reports malaise ENT Reports headache(s), Reports nasal congestion and Reports sore throat Card Denies chest pain at rest, Denies chest pain with activity, Denies edema, Denies irregular heart rhythm, Denies claudication, Denies dyspnea, Denies dyspnea on exertion, Denies orthopnea, Denies paroxysmal nocturnal dyspnea and Denies slow heart rate Resp Reports cough, Denies dyspnea and Denies dyspnea on exertion GI Denies abdominal pain, Denies change in bowel habits, Denies excessive flatus, Denies nausea and Denies vomiting Neuro Reports headache(s) Endo Reports fatigue Physical exam (Primary Care) Tobacco/Smoking Status: Tobacco use Status Tobacco use date assessed 09/11/24 10/03/24 10:45 Patient Tobacco Use Status Former Tobacco user 10/03/24 10:45 Tobacco use type Cigarette 10/03/24 10:45 e-Cigarette/Vaping Use Never Used 10/03/24 10:45 Thrive Assessment: Date of Thrive Assessment Date Thrive assessed 09/11/24 10/03/24 10:45 HENMT Head: Yes normal to inspection, Yes normocephalic and Yes atraumatic Ears: external ears normal General nose exam: Normal external nose present and Nasal discharge present Face and sinus: Yes sinuses nontender Mouth: lip normal Telehealth Telehealth Telehealth Platform: Telephone Location of provider rendering services: practice address Location of patient: address on file Patient Identification confirmed using: Name, : Yes Telehealth method: video Patient verbally consented to treatment: Yes Patient verbally consented to billing insurance company: Yes Patient informed of any privacy concerns related to visit: Yes Minutes spent on Phone/Video with Pt.: 15 Coding Level of Care Code Tele Est Pt Level 4 (67777) Diagnoses Viral infection of lower respiratory system J22; B97.89 Type 2 diabetes mellitus without complication, without long-term current use of insulin E11.9 Diabetes mellitus type: type 2 Diabetes mellitus service attendant insulin use: without service attendant use Diabetes mellitus complication status: without complication Essential hypertension I10 Hypertriglyceridemia E78.1 Chronic GERD K21.9 Time Spent (min) 15 Assessment & Plan Assessment & Plan (1) Viral infection of lower respiratory system: Code(s): J22 - Unspecified acute lower respiratory infection; B97.89 - Other viral agents as the cause of diseases classified elsewhere Category: Medical (2) Diabetes mellitus: Code(s): E11.9 - Type 2 diabetes mellitus without complications Category: Medical Qualifiers: Diabetes mellitus type: type 2 Diabetes mellitus service attendant insulin use: without senior living use Diabetes mellitus complication status: without complication Qualified Code(s): E11.9 - Type 2 diabetes mellitus without complications (3) Essential hypertension: Code(s): I10 - Essential (primary) hypertension Category: Medical (4) Hypertriglyceridemia: Code(s): E78.1 - Pure hyperglyceridemia Category: Medical (5) Chronic GERD: Code(s): K21.9 - Gastro-esophageal reflux disease without esophagitis Category: Medical Plan Test for COVID, flu and RSV ordered. Please do it today. Start Tamiflu. Isolate for 3 more days. Continue current medications for diabetes, hy pertension, hypertriglyceridemia and GERD. Orders: Orders SARS-CoV2/FLU/RSV Today R09.89 - Other specified symptoms and signs involving the circulatory and respiratory systems Medications: New oseltamivir (Tamiflu) 75 mg PO BID 5 days 10 caps 0RF empagliflozin (Jardiance) 10 mg PO DAILY 90 days 90 tabs 0RF
--- OUTSIDE RECORDS SUMMARY | 2024-10-03 11:42 | XMS_ITS | Clinical Summary ---
Author Organization [employer] [facility] Address [address] [place] [address] Care Team Providers Care Chair Car Driver Name Role Phone Unavailable Primary Care Provider [...] 5 Years) and At-Risk Patients (6 to 49) Years) Aged Out 07/28/2017 No longer eligible [...]
--- OUTSIDE RECORDS SUMMARY | 2024-10-03 11:42 | XMS_ITS | Encounter Summary ---
Author Organization [employer] Address [address] [place] [address] Care Team Providers Care Community Relations Liaison Name Role Phone Unavailable Primary Care Provider Unavailabl e Encounter Details Date Type Department Care Team (Late st Contact Info) Description 08/10/2022 Abstract [facility] [address] [place] [address] Dental, Provider, DDS Social History Tobacco Use [...]
--- OUTSIDE RECORDS SUMMARY | 2024-10-03 11:42 | XMS_ITS | Encounter Summary ---
Author Organization [employer] [facility] Address [address] [place] [address] Care Team Providers Care Machine Lay Out Worker Name Role Phone Unavailable Primary Care Provider Unavailabl e Encounter Details Date Type Department Care Team (Latest Contact Info) Description 11/25/2021 Abstract [facility] CONVERSIONS Dental, Provider, DDS Social History Tobacco [...]
== END 2024-10-03 11:31 | disposition home or self-care (01) ==
LOC: HO.HMCH 10:39
PROVIDERS: PCP Internal Medicine; Visit Provider Internal Medicine
DX: J22 Unspecified acute lower respiratory infection (principal); B97.89 Other viral agents as the cause of diseases classified elsewhere; E11.9 Type 2 diabetes mellitus without complications; I10 Essential (primary) hypertension; E78.1 Pure hyperglyceridemia; K21.9 Gastro-esophageal reflux disease without esophagitis

== ENCOUNTER 2024-12-20 07:28 | Outpatient (REF) | payer OTHER, SELFPAY ==
--- OUTSIDE RECORDS SUMMARY | 2024-12-20 07:31 | XMS_ITS | Encounter Summary ---
Author Organization [employer] Address [address] [place] [address] Care Team Providers Care Salesperson Toy Trains And Accessories Name Role Phone Unavailable Primary Care Provider Unavailabl e Encounter Details Date Type Department Care Team (Late st Contact Info) Description 08/10/2022 Abstract [facility] ADULT DENTAL [address] [place] [address] Dental, Provider, DDS Social History Tobacco Use [...]
--- OUTSIDE RECORDS SUMMARY | 2024-12-20 07:31 | XMS_ITS | Clinical Summary ---
Author Organization [employer] [facility] Address [address] [place] [address] Care Team Providers Care Brass Reclaimer Name Role Phone Unavailable Primary Care Provider [...]
--- OUTSIDE RECORDS SUMMARY | 2024-12-20 07:31 | XMS_ITS | Encounter Summary ---
Author Organization [facility] Address [address] [place] [address] Care Team Providers Care Detention Attendant Name Role Phone Unavailable Primary Care Provider Unavailabl e Encounter Details Date Type Department Care Team (Latest Contact Info) Description 11/25/[address] [facility] CONVERSIONS Dental, Provider, DDS Social History [...]
[2024-12-20 08:39] LABS: Alanine Aminotransferase 63 U/L (0-40); Albumin Level 4.6 g/dL (3.5-5.0); Alkaline Phosphatase 63 U/L (39-117); Anion Gap 12 (12-20); Aspartate Amino Transferase 38 U/L (5-37); Bilirubin Direct 0.2 mg/dL (0.0-0.5); Bilirubin Total 0.5 mg/dL (0.0-1.0); Blood Urea Nitrogen 22 mg/dL (9-16); Calcium 9.8 mg/dL (8.4-10.2); Carbon Dioxide 27 mmol/L (22-29); Chloride 99 mmol/L (96-108); Cholesterol 176 mg/dL (<200); Estimated Glomerular Filt Rate > 60; Glucose Fasting 174 mg/dL (60-99); HDL Cholesterol 36 mg/dL (>40); LDL Cholesterol Calculated 62 mg/dL (<100); Lipase 21 U/L (8-78); Potassium 4.2 mmol/L (3.3-5.1); Sodium 134 mmol/L (135-145); Total Protein 7.6 g/dL (6.5-8.0); Triglycerides 391 mg/dL (<150)
[2024-12-20 08:40] LABS: Creatinine Urine 60.62 mg/dL; Microalbumin Urine < 5.0 mg/L
[2024-12-20 08:57] LABS: Vitamin D 25-OH Total 18.7 ng/mL (>30)
== END 2024-12-20 07:29 | disposition home or self-care (01) ==
LOC: HO.LAB 07:28
PROVIDERS: PCP Internal Medicine; Visit Provider Nurse Practitioner Family
DX: Z00.00 Encounter for general adult medical examination without abnormal findings (principal); E78.1 Pure hyperglyceridemia; R10.9 Unspecified abdominal pain; R74.01 Elevation of levels of liver transaminase levels; R80.9 Proteinuria, unspecified; E55.9 Vitamin D deficiency, unspecified
CPT/HCPCS: 36415; 80053; 80061; 80076; 82248; 82306; 82570; 83690

== ENCOUNTER 2024-12-25 15:05 | Outpatient (AMB) | payer OTHER, SELFPAY ==
[2024-12-25 15:13] VITALS: BP 112/68; PULSE 94; O2SAT 97; BMI 36.7
--- NOTE | 2024-12-25 15:13 | MHC.OFFVIS ---
Vital Signs 12/25/24 15:13 Height 5 ft 11 in Weight 263 lb BMI 36.7 BP 112/68 Blood Pressure Location Rt brachial Position Sitting Pulse 94 Pulse Source Pulse Oximeter Pulse Oximetry (%) 97 Oxygen Delivery Method Room Air Intake Visit Reasons: 3 month f/u Intake Note: ESTABLISHED PATIENT for Chronic GERD mgmt. Reminded of labs and appt on 12/19. Chief Complaint; Pt denies any GI sx or concerns at this time. Medications are still effective in mgmt of conditions. Pt does request refill of bisacodyl at today's visit. Aviation Mechanic Required: Yes Aviation Mechanic Services: Aviation Mechanic Present Aviation Mechanic Name: Toy [id number] [place] [facility] [place] Interpreted: clinical only Accompanied by: Self / Same As Patient Allergies Penicillins [PENICILLINS] Allergy (Intermediate, Verified 12/25/24 15:13) Hives HPI HPI 3 month f/u: Details: LAST VISIT: Chronic GERD Chronic idiopathic constipation Hypovitaminosis D Postprandial epigastric pain Exocrine pancreatic insufficiency Postprandial abdominal bloating Plan Continue pantoprazole. Avoid dietary triggers and late night snacking. Patient was instructed to take Dulcolax daily as he does not move his bowels often. Increase fluid intake and activity to promote better bowel motility. Most likely mild gastroparesis and constipation as well as epigastric pain related to Ozempic. Dose was increased in April. Patient notice symptoms worsening. Recommend switching possibly to Mounjaro. Patient will return in 3 months. He is agreeable to this plan and verbalizes understanding of instructions. He was given the opportunity to ask questions and all questions answered. ? Thank you for allowing me to participate in his care Orders Orders Liver Panel Today R74.01 Lipid Panel Today E78.1 Lipid Panel 4 Months E78.1 Lipase Today R10.9 TODAY'S VISIT Patient is here today for follow-up and to discuss lab results. Patient continues to have elevation of his liver enzymes. Admits that he has not been following up with diet very restrictions. Weight unchanged since August. Patient continues with low vitamin-D levels. Reports that he is taking vitamin-D every Tuesday. Patient written out of Dulcolax and is asking for refill. Patient reports that he is moving his bowels without any issues when he is taking the medication. Patient is also taking Colace as needed. Patient reports taking pantoprazole in the morning half an hour before breakfast with good results. Patient reports that he does not need to take famotidine did not night time as his symptoms are suppressed for the most part. Patient denies any nausea or vomiting. Denies any dyspepsia, dysphagia or odynophagia. Denies any melena, hematochezia. Reports to be feeling well [facility] Medical History High triglycerides Neuropathy Obese Hypovitaminosis D Allergic rhinitis Hemorrhoids Abdominal pain, RUQ (right upper quadrant) Hypertriglyceridemia Essential hypertension Diabetes mellitus Surgical History No pertinent past surgical history Family History Father Diabetes Hypertension Mother Diabetes Hypertension Stroke Maternal Grandmother Cancer Family/Other FH: mental illness Substance use disorder Maternal Aunt Diabetes Hypertension Paternal Aunt Diabetes Hypertension Social History Housing: Apartment Alcohol intake: former Patient Tobacco Use Status: Former Tobacco user Tobacco use type: Cigarette e-Cigarette/Vaping Use: Never Used Second Hand Smoke Exposure: No Substance Use Type: Marijuana service: No Current occupational status: employed Current occupational exposures/hazards: No Cognitive needs: No Hearing needs: No Vision needs: Yes Review of Systems Const Denies weight gain and Denies weight loss ENT Reports no additional complaints, Denies dysphagia and Denies odynophagia Card Reports no additional complaints Resp Reports no additional complaints GI Denies abdominal pain, Denies belching, Denies melena, Denies bloating, Denies change in bowel habits, Denies constipation, Denies dysphagia, Denies excessive flatus, Denies dyspepsia, Reports heartburn, Denies diarrhea, Reports loose stools, Denies nausea, Denies odynophagia and Denies vomiting Reports no additional complaints Musc Reports no additional complaints Neuro Reports no additional complaints Psych Reports no additional complaints Endo Reports no additional complaints Physical Exam Vital Signs: Last Vital Signs Pulse 94 12/25/24 15:13 BP 112/68 12/25/24 15:13 Pulse Ox 97 12/25/24 15:13 Oxygen Delivery Method Room Air 12/25/24 15:13 BMI result Body Mass Index 36.7 Const General: healthy appearing and no acute distress Nutritional Appearance: obese Orientation/consciousness: patient oriented x3 Resp Effort & Inspection: normal respiratory effort, able to speak in complete sentences, no tracheal deviation and symmetric chest movement Auscultation: clear to auscultation bilaterally Cardio Rate: regular rate GI Inspection: Yes normal to inspection, No distended and Yes obesity Palpation (GI): Soft to palpation, not firm, nontender and No hepatosplenomegaly present Auscultation: normal bowel sounds General: Yes no CVA tenderness Back/Spine/Pelvis Back: no CVA tenderness Skin General skin exam: elasticity normal, turgor normal and dry skin Neuro General: patient oriented x3 Psych Appearance: grossly normal Mental Status: mental status grossly normal Results Reviewed Results Reviewed: Laboratory Tests 05/16/24 12/20/24 14:40 07:45 AST 34 38 H ALT 49 H 63 H Alkaline Phosphatase 59 63 Triglycerides 857 H 391 H 25-OH Vitamin D Total 18.7 L Assessment & Plan Assessment & Plan (1) Chronic GERD: Code(s): K21.9 - Gastro-esophageal reflux disease without esophagitis Category: Medical (2) Chronic idiopathic constipation: Code(s): K59.04 - Chronic idiopathic constipation Category: Medical (3) Hypovitaminosis D: Code(s): E55.9 - Vitamin D deficiency, unspecified Category: Medical (4) Postprandial epigastric pain: Code(s): R10.13 - Epigastric pain (5) Postprandial abdominal bloating: Code(s): R14.0 - Abdominal distension (gaseous) Plan Continue pantoprazole every morning and famotidine as needed at bedtime. Patient was encouraged to continue avoiding dietary triggers and late night snacking. Staying upright for minimum 3 hours after meals discussed with patient. Patient was reminded about weight loss, exercise. His liver enzymes continue to be elevated. Patient is taking fenofibrate and triglycerides improved, however still very high. Patient is was encouraged to avoid carbs, fat and salty food. Encouraged to eat food high in protein. Patient was to follow-up in 1 year. We will repeat liver enzymes and if he still continues to have elevation in his liver enzymes he should be worked up for any a two view disorders. Will need to order a complete ultrasound with his liver elastography. Patient was encouraged to call our office if he will have any GI concerning symptoms. He is agreeable to this plan and verbalizes understanding of instructions. He was given the opportunity to ask questions and all questions answered. Thank you for allowing me to participate in his care he Medications: Refilled bisacodyl (Dulcolax (bisacodyl)) 10 mg (2 x 5 mg) PO BEDTIME 180 tabs 4RF pantoprazole take one tablet half an hour before breakfast 40 mg PO DAILY 90 days 90 tabs 3RF K21.9 - Gastro-esophageal reflux disease without esophagitis Coding Level of Care Code Est Pt Level 4 (45197) Complex EM visit Add On G2211 Diagnoses Chronic GERD K21.9 Chronic idiopathic constipation K59.04 Hypovitaminosis D E55.9 Postprandial epigastric pain R10.13 Postprandial abdominal bloating R14.0 Time Spent (min) 35 Comment 25 minutes spent with patient and additional 10 minutes spent reviewing his records
== END 2024-12-25 15:38 | disposition home or self-care (01) ==
LOC: HO.HGI 15:05
PROVIDERS: PCP Internal Medicine; Visit Provider Nurse Practitioner Family
DX: K21.9 Gastro-esophageal reflux disease without esophagitis (principal); K59.04 Chronic idiopathic constipation; E55.9 Vitamin D deficiency, unspecified; R10.13 Epigastric pain; R14.0 Abdominal distension (gaseous)
CPT/HCPCS: 99214; G2211

== ENCOUNTER → 2024-12-25 15:05 | Outpatient (BNVA) | payer OTHER, SELFPAY | PROVIDERS: PCP Internal Medicine; Visit Provider Nurse Practitioner Family | DX: K21.9 Gastro-esophageal reflux disease without esophagitis (principal); K59.04 Chronic idiopathic constipation; E55.9 Vitamin D deficiency, unspecified; R10.13 Epigastric pain; R14.0 Abdominal distension (gaseous) | CPT/HCPCS: 99212 ==